=== PATIENT | male | born 1945 | race Caucasian/White ===

== ENCOUNTER → 2016-10-28 | Outpatient (CLI) | payer MEDICARE ==
[2016-10-28 09:22] LABS: Anion Gap 12 mmol/L; Blood Urea Nitrogen 14 mg/dL (9-20); Calcium 9.5 mg/dL (8.4-10.2); Carbon Dioxide 25 mmol/L (22-30); Chloride 104 mmol/L (98-107); Glucose 194 mg/dL (74-99); Non-African American GFR(MDRD) >60 (>60 ml/min/1.73 sqM); Potassium 4.1 mmol/L (3.5-5.1); Sodium 141 mmol/L (137-145)
[2016-10-28 11:36] LABS: Hemoglobin A1C 7.7 % (4.2-6.1)
== END | disposition home or self-care (01) ==
LOC: LABWHC1 08:48
PROVIDERS: ATTEND Internal Medicine
DX: E11.9 Type 2 diabetes mellitus without complications (principal)
CPT/HCPCS: 36415; 80048; 82043; 83036

== ENCOUNTER → 2017-01-13 | Outpatient (CLI) | payer MEDICARE ==
[2017-01-13 09:16] LABS: Anion Gap 10 mmol/L; Blood Urea Nitrogen 18 mg/dL (9-20); Calcium 9.1 mg/dL (8.4-10.2); Carbon Dioxide 24 mmol/L (22-30); Chloride 106 mmol/L (98-107); Glucose 139 mg/dL (74-99); Non-African American GFR(MDRD) >60 (>60 ml/min/1.73 sqM); Potassium 4.2 mmol/L (3.5-5.1); Sodium 140 mmol/L (137-145)
[2017-01-13 10:01] LABS: Hemoglobin A1C 7.1 % (4.2-6.1)
== END ==
LOC: LABWHC1 08:31
PROVIDERS: ATTEND Internal Medicine
DX: E11.65 Type 2 diabetes mellitus with hyperglycemia (principal)
CPT/HCPCS: 36415; 80048; 82043; 83036

== ENCOUNTER → 2017-04-20 | Outpatient (CLI) | payer MEDICARE ==
[2017-04-20 10:18] LABS: Anion Gap 10 mmol/L; Blood Urea Nitrogen 14 mg/dL (9-20); Calcium 9.2 mg/dL (8.4-10.2); Carbon Dioxide 23 mmol/L (22-30); Chloride 106 mmol/L (98-107); Glucose 130 mg/dL (74-99); Non-African American GFR(MDRD) >60 (>60 ml/min/1.73 sqM); Potassium 4.4 mmol/L (3.5-5.1); Sodium 139 mmol/L (137-145)
[2017-04-20 13:23] LABS: Hemoglobin A1C 6.5 % (4.2-6.1)
== END | disposition home or self-care (01) ==
LOC: LABWHC1 08:50
PROVIDERS: ATTEND Internal Medicine
DX: E11.65 Type 2 diabetes mellitus with hyperglycemia (principal)
CPT/HCPCS: 36415; 80048; 83036

== ENCOUNTER → 2017-05-05 | Outpatient (CLI) | payer MEDICARE ==
--- NOTE | 2017-05-05 16:55 | US ---
EXAMINATION TYPE: US carotid duplex BILAT DATE OF EXAM: 05/05/2017 COMPARISON: NONE CLINICAL HISTORY: H81.49 Vertigo of central origin unspecified ear. EXAM MEASUREMENTS: RIGHT: Peak Systolic Velocity (PSV) cm/sec ----- Right CCA: 87.9 ----- Right ICA: 104.3 ----- Right ECA: 86.7 ICA/CCA ratio: 1.2 RIGHT: End Diastole cm/sec ----- Right CCA: 22.2 ----- Right ICA: 37.4 ----- Right ECA: 14.7 LEFT: Peak Systolic Velocity (PSV) cm/sec ----- Left CCA: 93.2 ----- Left ICA: 125.5 ----- Left ECA: 109.4 ICA/CCA ratio: 1.3 LEFT: End Diastole cm/sec ----- Left CCA: 23.8 ----- Left ICA: 43.0 ----- Left ECA: 12.1 VERTEBRALS (direction of flow): Right Vertebral: Antegrade Left Vertebral: Antegrade Grayscale images show no significant focal plaque at carotid bulb level. Mild increased velocities le ft internal carotid artery are present. ICA over CCA ratio remains within normal limits. IMPRESSION: No convincing hemodynamically significant stenosis in either internal carotid artery.
== END ==
LOC: RADUSWWP 16:06
PROVIDERS: ATTEND Internal Medicine
DX: R42 Dizziness and giddiness (principal)
CPT/HCPCS: 93880

== ENCOUNTER 2017-10-07 18:25 | Observation (INO) | payer MEDICARE ==
[2017-10-07] MEDS ORDERED: FAMOTIDINE 20 MG/2 ML VIAL IV STA (18:59)
[2017-10-07] MEDS ORDERED: methylPREDNISolone SOD SUCCI 125 MG/2 ML VIAL IV STA (18:59)
[2017-10-07] MEDS ORDERED: diphenhydrAMINE 50 MG/ML 1 ML VIAL IVP STA (18:59)
--- NOTE | 2017-10-07 19:14 | XR ---
EXAMINATION TYPE: XR chest 1V portable DATE OF EXAM: 10/07/2017 COMPARISON: 03/02/2016 INDICATION: Difficulty in breathing, tongue swelling TECHNIQUE: Single frontal view of the chest is obtained. FINDINGS: The heart size is normal. The pulmonary vasculature is normal. The lungs are clear. IMPRESSION: 1. No acute pulmonary process.
[2017-10-07 19:35] LABS: Basophils # (A) 0.1 k/uL (0-0.2); Basophils % (A) 1 %; Eosinophils # (A) 0.6 k/uL (0-0.7); Eosinophils % (A) 9 %; HCT 47.3 % (39.0-53.0); HGB 15.5 gm/dL (13.0-17.5); Lymphocytes # (A) 2.9 k/uL (1.0-4.8); Lymphocytes % (A) 39 %; MCH 30.2 pg (25.0-35.0); MCHC 32.9 g/dL (31.0-37.0); MCV 91.9 fL (80.0-100.0); Mean Platelet Volume 7.8; Monocytes # (A) 0.3 k/uL (0-1.0); Monocytes % (A) 5 %; Neutrophils # (A) 3.3 k/uL (1.3-7.7); Neutrophils % (A) 45 %; Platelet Count 143 k/uL (150-450); RBC 5.15 m/uL (4.30-5.90); RDW 12.1 % (11.5-15.5); WBC 7.3 k/uL (3.8-10.6)
[2017-10-07 19:44] LABS: ALT 38 U/L (21-72); AST 32 U/L (17-59); Albumin 4.5 g/dL (3.5-5.0); Alkaline Phosphatase 82 U/L (38-126); Anion Gap 11 mmol/L; Blood Urea Nitrogen 15 mg/dL (9-20); Calcium 9.6 mg/dL (8.4-10.2); Carbon Dioxide 28 mmol/L (22-30); Chloride 102 mmol/L (98-107); Glucose 100 mg/dL (74-99); Potassium 3.6 mmol/L (3.5-5.1); Sodium 141 mmol/L (137-145); Total Bilirubin 0.5 mg/dL (0.2-1.3); Total Protein 7.1 g/dL (6.3-8.2)
[2017-10-07 19:57] LABS: Partial Thromboplastin Time 22.5 sec (22.0-30.0)
[2017-10-07] MEDS ORDERED: NALOXONE 0.4 MG/ML 1 ML VIAL IV PRN (20:28)
[2017-10-07] MEDS ORDERED: SODIUM CHLORIDE 0.9% 1,000 ML IV SCH (20:30)
--- NOTE | 2017-10-07 20:38 | ED ---
General Adult HPI - General Chief complaint: Allergic Reaction Stated complaint: Swollen tounge Time Seen by Provider: 10/07/17 18:51 Source: patient, RN notes reviewed, old records reviewed Mode of arrival: ambulatory Limitations: no limitations - History of Present Illness Initial comments: 72-year-old male presents for evaluation of tongue swelling. This began approximately one hour prior to arrival. Patient has had some ALLERGIC issues with his fluorouracil cream which she is placing on his scalp and forehead secondary to precancerous lesions. He's had some swelling around his eyes and scalp. Last time uses screen was 3 days ago. He has had no facial swelling. Tongue swelling began abruptly. Patient is currently on Benzapril for high blood pressure. He has never had an issue with his blood pressure medication the past. No history of angioedema. No history of tongue swelling. Patient states he was some mild difficulty swallowing, no difficulty breathing. No nausea vomiting or diarrhea. - Related Data Home Medications Medication Instructions Recorded Confirmed Aspirin [Adult Low Dose Aspirin EC] 81 mg PO HS 10/07/17 10/07/17 Atorvastatin [Lipitor] 10 mg PO HS 10/07/17 10/07/17 Benazepril/Hydrochlorothiazide 1 tab PO DAILY 10/07/17 10/07/17 [Lotensin Hct 10-12.5 mg Tablet] Fluorouracil [Efudex] 1 applic TOPICAL BID 10/07/17 10/07/17 Potassium Chloride [Klor-Con 10] 10 meq PO DAILY 10/07/17 10/07/17 Allergies Allergy/AdvReac Type Severity Reaction Status Date / Time LON Inhibitors Allergy Swelling Verified 10/07/17 19:57 Penicillins Allergy Rash/Hives Verified 10/07/17 19:14 Sulfa (Sulfonamide Allergy Rash/Hives Verified 10/07/17 19:14 Antibiotics) Review of Systems ROS Statement: Those systems with pertinent positive or pertinent negative responses have been documented in the HPI. ROS Other: All systems not noted in ROS Statement are negative. Past Medical History Past Medical History: Cancer, Hyperlipidemia, Hypertension Additional Past Medical History / Comment(s): skin History of Any Multi-Drug Resistant Organisms: None Reported Past Surgical History: Cholecystectomy Additional Past Surgical History / Comment(s): eye Past Psychological History: No Psychological Hx Reported Smoking Status: Never smoker Past Alcohol Use History: None Reported Past Drug Use History: None Reported General Exam Limitations: no limitations General appearance: alert, in no apparent distress Head exam: Present: atraumatic, normocephalic Eye exam: Present: normal appearance, PERRL ENT exam: Present: other (Large left-sided unilateral tongue swelling, no swelling of the uvula or posterior oropharynx, no lip swelling) Respiratory exam: Present: normal lung sounds bilaterally. Absent: respiratory distress, stridor Cardiovascular Exam: Present: regular rate, normal rhythm GI/Abdominal exam: Present: soft. Absent: distended, tenderness Extremities exam: Present: normal inspection, normal capillary refill. Absent: pedal edema Neurological exam: Present: alert, oriented X3, CN II-XII intact. Absent: motor sensory deficit Psychiatric exam: Present: normal affect, normal mood Skin exam: Present: warm, dry, intact. Absent: cyanosis, diaphoretic Course Vital Signs 10/07/17 10/07/17 10/07/17 18:39 19:05 20:05 Temperature 98.7 F Pulse Rate 69 67 65 Respiratory 16 20 20 Rate Blood Pressure 185/92 153/82 136/83 O2 Sat by Pulse 97 99 96 Oximetry - Reevaluation(s) Reevaluation #1: 10/07/17 20:36 Patient reevaluated multiple times, he does have persistent swelling which is non-progressive. No respiratory distress on reevaluation. Medical Decision Making - Medical Decision Making 71-year-old male presenting with left-sided tongue swelling consistent with angioedema. Patient is currently on an LON inhibitor. This will be discontinued and added to his ALLERGY list. Patient has no respiratory distress , no Progression of symptoms while in the emergency department. He will be admitted for close evaluation. He is given episode, Benadryl, and Solu-Medrol in the emergency department. Case is discussed with the pulmonary asphalt raker immigration manager is aware of the patient for the possibility of deterioration. Patient will be admitted to stepdown unit for close observation. - Lab Data Result diagrams: 10/07/17 19:25 10/07/17 19:25 Lab Results 10/07/17 10/07/17 10/07/17 Range/Units 19:25 19:25 19:25 WBC 7.3 (3.8-10.6) k/uL RBC 5.15 (4.30-5.90) m/uL Hgb 15.5 (13.0-17.5) gm/dL Hct 47.3 (39.0-53.0) % MCV 91.9 (80.0-100.0) fL MCH 30.2 (25.0-35.0) pg MCHC 32.9 (31.0-37.0) g/dL RDW 12.1 (11.5-15.5) % Plt Count 143 L (150-450) k/uL Neutrophils % 45 % Lymphocytes % 39 % Monocytes % 5 % Eosinophils % 9 % Basophils % 1 % Neutrophils # 3.3 (1.3-7.7) k/uL Lymphocytes # 2.9 (1.0-4.8) k/uL Monocytes # 0.3 (0-1.0) k/uL Eosinophils # 0.6 (0-0.7) k/uL Basophils # 0.1 (0-0.2) k/uL PT 10.0 (9.0-12.0) sec INR 1.0 (<1.2) APTT 22.5 (22.0-30.0) sec Sodium 141 (137-145) mmol/L Potassium 3.6 (3.5-5.1) mmol/L Chloride 102 (98-107) mmol/L Carbon Dioxide 28 (22-30) mmol/L Anion Gap 11 mmol/L BUN 15 (9-20) mg/dL Creatinine 0.88 (0.66-1.25) mg/dL Est GFR (MDRD) Af Amer >60 (>60 ml/min/1.73 sqM) Est GFR (MDRD) Non-Af >60 (>60 ml/min/1.73 sqM) Glucose 100 H (74-99) mg/dL Calcium 9.6 (8.4-10.2) mg/dL Total Bilirubin 0.5 (0.2-1.3) mg/dL AST 32 (17-59) U/L ALT 38 (21-72) U/L Alkaline Phosphatase 82 (38-126) U/L Total Protein 7.1 (6.3-8.2) g/dL Albumin 4.5 (3.5-5.0) g/dL Critical Care Time Critical Care Time: Yes Total Critical Care Time: 35 Disposition Clinical Impression: Angioedema Disposition: ADMITTED IP TO THIS HOSP Condition: Serious Referrals: Plonka,Lucio J, MD [Primary Care Provider] - 1-2 days Decision to Admit Reason: Admit from EC Decision Date: 10/07/17 Decision Time: 20:37
[2017-10-07] MEDS ORDERED: ACETAMINOPHEN TAB 325 MG TAB PO PRN (22:50)
[2017-10-07 22:55] VITALS: BMI 27.8
[2017-10-07] MEDS ORDERED: ASPIRIN 81 MG PO SCH (23:00)
[2017-10-07] MEDS ORDERED: ATORVASTATIN 10 MG TAB PO SCH (23:00)
--- NOTE | 2017-10-07 23:02 | P.HPIM ---
History of Present Illness H&P Date: 10/07/17 Chief Complaint: tongue swelling of few hours duration 72 year old male with pmhx skin precancer lesion of the scalp , hypertension. Patient presetned one hour after he noticed that his tongue is getting swollen, he denies any compromise to swallowing or breathing difficulties, but he noticed difficulties with speech along with swelling of his eyes. He had no changes in his medications and he has been taking benazepril for over 20 years now, however, he was recently started on 5-FU cream for his scalp precancerous lesions (there are case reports of angioedema with 5-FU cream). otherwise patient denies any fevers, chills, headache, SOB, chest pain, abd pain, diarrhea , denies any diffculty urinating , denies any bleeding. He feels Ok now after he received solumedrol, benadryl in the ED, he feels his tongue is back to normal sizze, and his speech is almost back to normal,. he otherwise denies any focal neurologic deficits. He was admitted for close observation, and to monitor his airways, in case he needs intubation. case was discussed with the ICU physician budget consultant to check for bed availability in the ICU in case needed, and he was OK with the admission to step down unit for observation. Review of Systems Constitutional: Patient denies fever, denies chills, denies night sweating, denies significant weight changes Eyes: Patient denies visual changes, denies eye pain ENT: Patient denies ear pain, denies rhinorrhea, denies sore throat Cardiovascular: Patient denies chest pain, denies exertional dyspnea, denies peripheral leg edema, denies orthopnea, denies paroxysmal nocturnal dyspnea Respiratory:Patient denies cough, denies wheezing, denies shortness of breath Gastrointestinal: Patient denies diarrhea, denies constipation, denies nausea , denies vomiting, denies abdominal pain Genitourinary: Patient denies dysuria, denies hematuria, denies changes in urinary habits, denies genital lesions Musculoskeletal: Patient denies muscle pain, denies joint pain Psychiatric: Patient denies changes in mood or memory, denies suicidal ideation, denies anxiety Endocrine: Patient denies heat intolerance, denies cold intolerance, denies excessive thirst, denies polyuria Neurological: Patient denies focal neurologic deficits, denies weakness, denies numbness, denies tingling Hem/Lymphatic: Patient denies bleeding tendency, denies bruising, denies swollen lymph glands Allergic/Immun: Patient reports symptoms suggestive of allergic reaction ( angioedema Skin: Patient denies rashes, denies pruritis, denies ulcers 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 History of Any Multi-Drug Resistant Organisms: None Reported Past Surgical History: Cholecystectomy Additional Past Surgical History / Comment(s): eye (cataracts); laminectomy(2016 ) Past Anesthesia/Blood Transfusion Reactions: No Reported Reaction Past Psychological History: No Psychological Hx Reported Smoking Status: Never smoker Past Alcohol Use History: Occasional Past Drug Use History: None Reported - Past Family History Mother Family Medical History: Cancer Additional Family Medical History / Comment(s): lung CA Father Family Medical History: Hypertension Sister(s) Family Medical History: COPD, Rheumatoid Arthritis (RA) Medications and Allergies Home Medications Medication Instructions Recorded Confirmed Type Aspirin [Adult Low Dose Aspirin EC] 81 mg PO HS 10/07/17 10/07/17 History Atorvastatin [Lipitor] 10 mg PO HS 10/07/17 10/07/17 History Benazepril/Hydrochlorothiazide 1 tab PO DAILY 10/07/17 10/07/17 History [Lotensin Hct 10-12.5 mg Tablet] Fluorouracil [Efudex] 1 applic TOPICAL BID 10/07/17 10/07/17 History Potassium Chloride [Klor-Con 10] 10 meq PO DAILY 10/07/17 10/07/17 History Allergies Allergy/AdvReac Type Severity Reaction Status Date / Time LON Inhibitors Allergy Swelling Verified 10/07/17 19:57 Penicillins Allergy Rash/Hives Verified 10/07/17 19:14 Sulfa (Sulfonamide Allergy Rash/Hives Verified 10/07/17 19:14 Antibiotics) Physical Exam Vitals: Vital Signs Temp Pulse Resp BP Pulse Ox 10/07/17 21:01 98.3 F 66 20 169/77 96 10/07/17 20:05 65 20 136/83 96 10/07/17 19:05 67 20 153/82 99 10/07/17 18:39 98.7 F 69 16 185/92 97 Intake and Output 10/07/17 10/07/17 10/07/17 06:59 14:59 22:59 Other: # Voids 1 Weight 85.729 kg Patient Weight 10/08/17 06:59 Weight 85.729 kg Constitutional: No acute distress, conversant, pleasant Eyes: Anicteric sclerae, moist conjunctiva, no lid-lag Pupils equal round reactive to light ENMT: NC/AT Oropharynx clear, no erythema, exudates tongue of unremarkable size at this time, uveola midline, soft palate is symmetrical, no mucus membrane swelling Neck: Supple, FROM, no masses, or JVD No carotid bruits No thyromegaly Lungs: Clear to auscultation Clear to percussion Normal respiratory effort, no accessory muscle use Cardiovascular: Heart regular in rate and rhythm, No murmurs, gallops, or rubs No peripheral edema Abdominal: Soft Nontender, no guarding, rebound or rigidity Abdomen moving with respiration Normoactive bowel sounds No hepatomegaly, No splenomegaly No palpable mass No abdominal wall hernia noted Skin: scalp with multiple superficial small ulcers Normal temperature, tone, texture, turgor No induration No subcutaneous nodules No rash, lesions keratotic dermatitis on the back, multiple Extremities: No digital cyanosis No clubbing Pedal pulses intact and symmetrical Radial pulses intact and symmetrical No calf tenderness Psychiatric: Alert and oriented to person, place and time Appropriate affect fair judgment Neuro Muscles Strength 5/5 in all 4 extremities Sensation to light touch grossly present throughout Cranial nerves II-XII grossly intact No focal sensory deficits Lymphatics: no palpable cervical or supraclavicular , or inguinal lymph nodes Results CBC & Chem 7: 10/07/17 19:25 10/07/17 19:25 Labs: Abnormal Lab Results - Last 24 Hours (Table) 10/07/17 10/07/17 Range/Units 19:25 19:25 Plt Count 143 L (150-450) k/uL Glucose 100 H (74-99) mg/dL Assessment and Plan (1) Angioedema Narrative/Plan: currently improving after initial treatment with solumedrol, benadryl i discussed with the patient indications, risks and benefits of FFP in this condition, he agreed to receive the transfusion continue close monitoring of airways and any reoccurence of symptoms 5-FU cream is also mentioned in the literature to possibly cause angioedema patient should not use 5-FU or ACEi after discharge , and this should be discussed further with his physicians to look for alternatives Current Visit: Yes Status: Acute Code(s): T78.3XXA - ANGIONEUROTIC EDEMA, INITIAL ENCOUNTER SNOMED Code(s): 84468516 (2) Hypertension Narrative/Plan: uncontrolled discontinue ACEI due to possible cause of angioedema continue with HCTZ start norvasc 5 mg daily monitor vital signs currently asymptomatic Current Visit: Yes Status: Acute Code(s): I10 - ESSENTIAL (PRIMARY) HYPERTENSION SNOMED Code(s): 76493665 (3) Precancerous skin lesion Narrative/Plan: OP follow up with his doctor avoid 5 FU cream after discharge Current Visit: Yes Status: Acute Code(s): L98.9 - DISORDER OF THE SKIN AND SUBCUTANEOUS TISSUE, UNSPECIFIED SNOMED Code(s): 29442774 (4) DVT prophylaxis Narrative/Plan: heparin sc tid Current Visit: Yes Status: Acute Code(s): KPV3307 - SNOMED Code(s): 436674915 Plan: Surrogate decision-maker: patient CODE STATUS full code DVT prophylaxis: heparin sc Discussed with: Patient, ER, rn, family Anticipated discharge: [address]: home A total of 60 minutes were spent on the care of this complex patient more than 50% of the time was spent in counseling and care coordination.
[2017-10-07] MEDS: amLODIPine 5 MG TAB PO SCH (23:38)
[2017-10-07] MEDS: FAMOTIDINE 20 MG TAB PO SCH (23:38)
[2017-10-07] MEDS: HEPARIN SODIUM,PORCINE 5,000 UNIT/ML 1 ML VIAL SQ SCH (23:38)
[2017-10-08 05:07] VITALS: RESP 18
[2017-10-08 07:05] LABS: Basophils % (A) 0 %; Eosinophils % (A) 0 %; HCT 39.5 % (39.0-53.0); HGB 13.6 gm/dL (13.0-17.5); Lymphocytes # (A) 1.1 k/uL (1.0-4.8); Lymphocytes % (A) 17 %; MCH 30.8 pg (25.0-35.0); MCHC 34.5 g/dL (31.0-37.0); MCV 89.2 fL (80.0-100.0); Mean Platelet Volume 7.7; Monocytes # (A) 0.1 k/uL (0-1.0); Monocytes % (A) 1 %; Neutrophils # (A) 5.1 k/uL (1.3-7.7); Neutrophils % (A) 81 %; Platelet Count 138 k/uL (150-450); RBC 4.43 m/uL (4.30-5.90); RDW 12.1 % (11.5-15.5); WBC 6.3 k/uL (3.8-10.6)
[2017-10-08 07:34] LABS: ALT 29 U/L (21-72); AST 24 U/L (17-59); Albumin 3.9 g/dL (3.5-5.0); Alkaline Phosphatase 73 U/L (38-126); Anion Gap 12 mmol/L; Blood Urea Nitrogen 14 mg/dL (9-20); Calcium 9.4 mg/dL (8.4-10.2); Carbon Dioxide 25 mmol/L (22-30); Chloride 104 mmol/L (98-107); Glucose 196 mg/dL (74-99); Potassium 3.6 mmol/L (3.5-5.1); Sodium 141 mmol/L (137-145); Total Bilirubin 0.5 mg/dL (0.2-1.3); Total Protein 6.4 g/dL (6.3-8.2)
[2017-10-08] MEDS: amLODIPine 5 MG TAB PO SCH (07:47)
[2017-10-08] MEDS: HEPARIN SODIUM,PORCINE 5,000 UNIT/ML 1 ML VIAL SQ SCH (07:47)
[2017-10-08] MEDS: FAMOTIDINE 20 MG TAB PO SCH (07:47)
[2017-10-08 07:54] VITALS: BP 132/69; PULSE 88; TEMP 96.6
[2017-10-08] MEDS ORDERED: HYDROCHLOROTHIAZIDE 12.5 MG CAP PO SCH (09:00)
[2017-10-08] MEDS ORDERED: amLODIPine 5 MG TAB PO SCH (09:00)
--- NOTE | 2017-10-08 10:41 | P.DS ---
Providers Date of admission: 10/07/17 20:30 Expected date of discharge: 10/08/17 Attending physician: Vinny Bruce MD Primary care physician: Lucio Greco - Discharge Diagnosis(es) (1) Angioedema Symptoms have resolved at this time Recommendation for patient. LON inhibitor and 5-FU Current Visit: Yes Status: Acute (2) Hypertension Blood pressure controlled on this regimen at this time Current Visit: Yes Status: Acute (3) Precancerous skin lesion Patient to follow-up with financial manager for further recommendations Current Visit: Yes Status: Acute Hospital Course: 72-year-old male that presented to [facility] symptoms of tongue swelling. Denies any shortness of breath or difficulty swallowing. But did notice having difficulty with speech with his tongue swelling. Patient has been taken LON inhibitor for over 20 years. 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 On 2 occasions previously patient had an reaction to that with swelling in his face from that. But never had any tongue swelling previous to that. Last use was to stay and the swelling had gone down. Suddenly yesterday patient started noticing tongue swelling difficulty with speech but no shortness of breath. So patient presented to [facility] ER where he was admitted for angioedema. Patient was treated with IV steroids Pepcid and was given fresh frozen plasma. Patient back to baseline at this time. We'll discharge home on Pepcid tapering dose of prednisone. Patient's LON inhibitor was discontinued. This was replaced by Norvasc and patient was given prescription for hydrochlorothiazide separately since he took a combination medication including the LON inhibitor and hydrochlorothiazide. Patient was asked to follow-up with Dr. Greco in 1 week. gen:alert and oriented no tongue swelling lungs:clear to auscultation heart:s1s2 abdomen:soft and depressible,non tender ext:no edema Patient Condition at Discharge: Stable Plan - Discharge Summary Discharge Rx Participant: No New Discharge Prescriptions: New amLODIPine [Norvasc] 5 mg PO DAILY #30 tab diphenhydrAMINE [Benadryl] 25 mg PO QID PRN #20 capsule PRN Reason: Angioedema Famotidine [Pepcid] 20 mg PO BID #7 tab Hydrochlorothiazide [Hydrodiuril] 12.5 mg PO DAILY #30 cap predniSONE 10 mg PO DAILY #30 tab Continue Potassium Chloride [Klor-Con 10] 10 meq PO DAILY Atorvastatin [Lipitor] 10 mg PO HS Aspirin [Adult Low Dose Aspirin EC] 81 mg PO HS Discontinued Benazepril/Hydrochlorothiazide [Lotensin Hct 10-12.5 mg Tablet] 1 tab PO DAILY Fluorouracil [Efudex] 1 applic TOPICAL BID Discharge Medication List Aspirin [Adult Low Dose Aspirin EC] 81 mg PO HS 10/07/17 [History] Atorvastatin [Lipitor] 10 mg PO HS 10/07/17 [History] Potassium Chloride [Klor-Con 10] 10 meq PO DAILY 10/07/17 [History] Famotidine [Pepcid] 20 mg PO BID #7 tab 10/08/17 [Rx] Hydrochlorothiazide [Hydrodiuril] 12.5 mg PO DAILY #30 cap 10/08/17 [Rx] amLODIPine [Norvasc] 5 mg PO DAILY #30 tab 10/08/17 [Rx] diphenhydrAMINE [Benadryl] 25 mg PO QID PRN #20 capsule 10/08/17 [Rx] predniSONE 10 mg PO DAILY #30 tab 10/08/17 [Rx] Follow up Appointment(s)/Referral(s): Lucio Greco MD [Primary Care Provider] - 1-2 days
== END 2017-10-08 11:39 | disposition home or self-care (01) ==
LOC: EC 18:25 → 6SEL 20:30 → INTOOBSV 20:30
PROVIDERS: ADMIT Internal Medicine; ATTEND Internal Medicine
DX: T78.3XXA Angioneurotic edema, initial encounter (principal); L98.9 Disorder of the skin and subcutaneous tissue, unspecified; I10 Essential (primary) hypertension; E78.5 Hyperlipidemia, unspecified; M19.90 Unspecified osteoarthritis, unspecified site; Z79.82 Long term (current) use of aspirin; Z79.899 Other long term (current) drug therapy; Z88.0 Allergy status to penicillin; Z88.2 Allergy status to sulfonamides; Z88.8 Allergy status to other drugs, medicaments and biological substances; Z80.1 Family history of malignant neoplasm of trachea, bronchus and lung; Z82.49 Family history of ischemic heart disease and other diseases of the circulatory system; Z82.5 Family history of asthma and other chronic lower respiratory diseases; Z82.61 Family history of arthritis
CPT/HCPCS: 99291 ×2; 96374 ×2; 96375 ×3; 96372 ×2; 36415; 86900; 86901; 80053 ×2; 85025 ×2; 85610; 85730; 86850; 71045; G0378 ×2; P9059 ×2; J1200; J1644 ×2; J2930

== ENCOUNTER 2017-10-15 18:36 | Emergency (ER) | payer MEDICARE ==
[2017-10-15 18:45] VITALS: RESP 17
[2017-10-15] MEDS ORDERED: SODIUM CHLORIDE 0.9% 1,000 ML IV STA (18:57)
[2017-10-15] MEDS ORDERED: methylPREDNISolone SOD SUCCI 125 MG/2 ML VIAL IV STA (18:57)
--- NOTE | 2017-10-15 19:01 | ED ---
General Adult HPI - General Chief complaint: Allergic Reaction Stated complaint: throat swelling Time Seen by Provider: 10/15/17 18:49 Source: patient, RN notes reviewed Mode of arrival: ambulatory Limitations: no limitations - History of Present Illness Initial comments: 72 yo male presents to the ER with cc of knot in his throat. Patient states that last week he had an episode of angioedema. He is currently on a Medrol Dosepak and he states that tonight he just mostly little knot in his throat. He states he took 2 Benadryl and it seemed to lessen but he was concerned due to his recent angioedema states that he should be seen. They did take him off his lisinopril which they were suspicious was causing his symptoms. They state that she does not feeling short of breath he just feels versus not his throat and swallowing can be difficult. He states he is able to tolerate his saliva. They were concerns without they should be seen. There is been no rash. Patient denies any recent fever, chills, shortness of breath, chest pain, back pain, abdominal pain, nausea vomiting, numbness or tingling, dysuria or hematuria, constipation or diarrhea, headaches or visual changes, or any other current symptoms. - Related Data Home Medications Medication Instructions Recorded Confirmed Aspirin [Adult Low Dose Aspirin EC] 81 mg PO HS 10/07/17 10/15/17 Atorvastatin [Lipitor] 10 mg PO HS 10/07/17 10/15/17 Potassium Chloride [Klor-Con 10] 10 meq PO DAILY 10/07/17 10/15/17 Hydrochlorothiazide [Hydrodiuril] 12.5 mg PO DAILY PRN 10/15/17 10/15/17 diphenhydrAMINE [Benadryl] 50 mg PO QID PRN 10/15/17 10/15/17 predniSONE See Taper PO DAILY 10/15/17 10/15/17 Previous Rx's Medication Instructions Recorded amLODIPine [Norvasc] 5 mg PO DAILY #30 tab 10/08/17 Famotidine [Pepcid] 20 mg PO BID #10 tablet 10/15/17 diphenhydrAMINE [Benadryl] 50 mg PO HS PRN #5 capsule 10/15/17 predniSONE 50 mg PO DAILY #5 tab 10/15/17 Allergies Allergy/AdvReac Type Severity Reaction Status Date / Time LON Inhibitors Allergy Swelling Verified 10/15/17 19:17 Penicillins Allergy Rash/Hives Verified 10/15/17 19:17 Sulfa (Sulfonamide Allergy Rash/Hives Verified 10/15/17 19:17 Antibiotics) Review of Systems ROS Statement: Those systems with pertinent positive or pertinent negative responses have been documented in the HPI. ROS Other: All systems not noted in ROS Statement are negative. 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 History of Any Multi-Drug Resistant Organisms: None Reported Past Surgical History: Cholecystectomy Additional Past Surgical History / Comment(s): eye (cataracts); laminectomy(2016 ) Past Anesthesia/Blood Transfusion Reactions: No Reported Reaction Past Psychological History: No Psychological Hx Reported Smoking Status: Never smoker Past Alcohol Use History: Occasional Past Drug Use History: None Reported - Past Family History Mother Family Medical History: Cancer Additional Family Medical History / Comment(s): lung CA Father Family Medical History: Hypertension Sister(s) Family Medical History: COPD, Rheumatoid Arthritis (RA) General Exam - General Exam Comments Initial Comments: General: The patient is awake and alert, in no distress, and does not appear acutely ill. Eye: Pupils are equal, round and reactive to light. Ears, nose, mouth and throat: There are moist mucous membranes. Neck: The neck is supple, there is no tenderness. Cardiovascular: There is a regular rate and rhythm. No murmur, rub or gallop is appreciated. Respiratory: Lungs are clear to auscultation, respirations are non-labored, breath sounds are equal. No wheezes, stridor, rales, or rhonchi. Gastrointestinal: Soft, non-distended, non-tender abdomen without masses or organomegaly noted. There is no rebound or guarding present. No CVA tenderness. Bowel sounds are unremarkable. Back: There is no tenderness to palpation in the midline. There is no obvious deformity. No rashes noted. Musculoskeletal: Normal ROM, no tenderness, There is no pedal edema. There is no calf tenderness or swelling. Sensation intact. Pulses equal bilaterally 2+. Neurological: CN II-XII intact, There are no obvious motor or sensory deficits. Coordination appears grossly intact. Speech is normal. Skin: Skin is warm and dry and no rashes or lesions are noted. Psychiatric: Cooperative, appropriate mood & affect, normal judgment. Limitations: no limitations Course Vital Signs 10/15/17 18:42 Temperature 98.2 F Pulse Rate 89 Respiratory 17 Rate Blood Pressure 182/88 O2 Sat by Pulse 98 Oximetry Medical Decision Making - Medical Decision Making 72-year-old male presents to the emergency Department chief complaint of throat irritation. At this time the patient was reexamined. He states that his throat irritation has improved. At this time we discussed continuing look for the ALLERGIES. We discussed we will increase his steroids as well as Benadryl and Pepcid. We discussed return parameters and follow-up and all questions. The patient stated that he understood and she is in agreement with this plan. All questions have been answered. This time patient will be discharged. - Lab Data Result diagrams: 10/15/17 19:23 10/15/17 19:23 Lab Results 10/15/17 10/15/17 Range/Units 19:23 19:23 WBC 10.5 (3.8-10.6) k/uL RBC 5.09 (4.30-5.90) m/uL Hgb 15.8 (13.0-17.5) gm/dL Hct 46.6 (39.0-53.0) % MCV 91.5 (80.0-100.0) fL MCH 31.0 (25.0-35.0) pg MCHC 33.9 (31.0-37.0) g/dL RDW 12.2 (11.5-15.5) % Plt Count 143 L (150-450) k/uL Neutrophils % 69 % Lymphocytes % 26 % Monocytes % 4 % Eosinophils % 0 % Basophils % 0 % Neutrophils # 7.2 (1.3-7.7) k/uL Lymphocytes # 2.8 (1.0-4.8) k/uL Monocytes # 0.4 (0-1.0) k/uL Eosinophils # 0.0 (0-0.7) k/uL Basophils # 0.0 (0-0.2) k/uL Sodium 141 (137-145) mmol/L Potassium 3.8 (3.5-5.1) mmol/L Chloride 103 (98-107) mmol/L Carbon Dioxide 24 (22-30) mmol/L Anion Gap 14 mmol/L BUN 19 (9-20) mg/dL Creatinine 0.90 (0.66-1.25) mg/dL Est GFR (MDRD) Af Amer >60 (>60 ml/min/1.73 sqM) Est GFR (MDRD) Non-Af >60 (>60 ml/min/1.73 sqM) Glucose 136 H (74-99) mg/dL Calcium 9.5 (8.4-10.2) mg/dL Total Bilirubin 0.6 (0.2-1.3) mg/dL AST 30 (17-59) U/L ALT 44 (21-72) U/L Alkaline Phosphatase 83 (38-126) U/L Total Protein 7.4 (6.3-8.2) g/dL Albumin 4.5 (3.5-5.0) g/dL Disposition Clinical Impression: Allergic reaction Disposition: HOME SELF-CARE Condition: Stable Instructions: Anaphylaxis (ED) Additional Instructions: Please use medication as discussed. Please follow up with family doctor if symptoms have not improved over the next two days. Please return to the emergency room if your symptoms increase or worsen or for any other concerns. Prescriptions: diphenhydrAMINE [Benadryl] 50 mg PO HS PRN #5 capsule PRN Reason: Itching Famotidine [Pepcid] 20 mg PO BID #10 tablet predniSONE 50 mg PO DAILY #5 tab Referrals: Lucio Greco MD [Primary Care Provider] - 1-2 days Time of Disposition: 20:52
[2017-10-15 19:48] LABS: Basophils % (A) 0 %; Eosinophils % (A) 0 %; HCT 46.6 % (39.0-53.0); HGB 15.8 gm/dL (13.0-17.5); Lymphocytes # (A) 2.8 k/uL (1.0-4.8); Lymphocytes % (A) 26 %; MCHC 33.9 g/dL (31.0-37.0); MCV 91.5 fL (80.0-100.0); Mean Platelet Volume 7.5; Monocytes # (A) 0.4 k/uL (0-1.0); Monocytes % (A) 4 %; Neutrophils # (A) 7.2 k/uL (1.3-7.7); Neutrophils % (A) 69 %; Platelet Count 143 k/uL (150-450); RBC 5.09 m/uL (4.30-5.90); RDW 12.2 % (11.5-15.5); WBC 10.5 k/uL (3.8-10.6)
[2017-10-15 20:04] LABS: ALT 44 U/L (21-72); AST 30 U/L (17-59); Albumin 4.5 g/dL (3.5-5.0); Alkaline Phosphatase 83 U/L (38-126); Anion Gap 14 mmol/L; Blood Urea Nitrogen 19 mg/dL (9-20); Calcium 9.5 mg/dL (8.4-10.2); Carbon Dioxide 24 mmol/L (22-30); Chloride 103 mmol/L (98-107); Glucose 136 mg/dL (74-99); Potassium 3.8 mmol/L (3.5-5.1); Sodium 141 mmol/L (137-145); Total Bilirubin 0.6 mg/dL (0.2-1.3); Total Protein 7.4 g/dL (6.3-8.2)
[2017-10-15 21:04] VITALS: BP 153/88; PULSE 69; TEMP 97.6
== END 2017-10-15 21:10 | disposition home or self-care (01) ==
LOC: EC 18:36
DX: T78.40XA Allergy, unspecified, initial encounter (principal); E78.5 Hyperlipidemia, unspecified; M19.90 Unspecified osteoarthritis, unspecified site; Z85.828 Personal history of other malignant neoplasm of skin; Z79.82 Long term (current) use of aspirin; Z79.52 Long term (current) use of systemic steroids; Z79.899 Other long term (current) drug therapy
CPT/HCPCS: 36415; 80053; 85025; 99283; 96374; 96361; J2930

== ENCOUNTER → 2017-10-26 | Outpatient (CLI) | payer MEDICARE ==
[2017-10-26 08:48] LABS: Appearance,Urine Clear (Clear); Bilirubin,Urine Negative (Negative); Blood,Urine Negative (Negative); Color,Urine Yellow; Glucose,Urine (UA) 4+ (Negative); Ketones,Urine Trace (Negative); Leukocyte Esterase,Urine Negative (Negative); Protein,Urine Trace (Negative); Specific Gravity,Urine 1.022 (1.001-1.035); Urobilinogen,Urine <2.0 mg/dL (<2.0)
[2017-10-26 08:49] LABS: Basophils % (A) 0 %; Eosinophils # (A) 0.2 k/uL (0-0.7); Eosinophils % (A) 2 %; HCT 40.4 % (39.0-53.0); HGB 13.9 gm/dL (13.0-17.5); Lymphocytes # (A) 2.7 k/uL (1.0-4.8); Lymphocytes % (A) 25 %; MCH 30.3 pg (25.0-35.0); MCHC 34.5 g/dL (31.0-37.0); MCV 87.8 fL (80.0-100.0); Mean Platelet Volume 8.4; Monocytes # (A) 0.5 k/uL (0-1.0); Monocytes % (A) 4 %; Neutrophils # (A) 7.1 k/uL (1.3-7.7); Neutrophils % (A) 67 %; Platelet Count 116 k/uL (150-450); RDW 12.1 % (11.5-15.5); WBC 10.6 k/uL (3.8-10.6)
[2017-10-26 11:02] LABS: Erythrocyte Sedimentation Rate 8 mm/hr (0-15)
[2017-10-28 16:59] LABS: C1 Esterase Inhibitor Fnc Assy > 86 % (> 67)
[2017-10-29 10:35] LABS: C1 Esterase Inhibitor, Protein 28 mg/dL (21-39)
== END | disposition home or self-care (01) ==
LOC: LABWHC1 07:55
PROVIDERS: ATTEND Allergy & Immunology
DX: T78.3XXA Angioneurotic edema, initial encounter (principal)
CPT/HCPCS: 36415; 81003; 84443; 85025; 85652; 86038; 86140; 86160; 86161

== ENCOUNTER → 2017-12-01 | Outpatient (CLI) | payer MEDICARE ==
[2017-12-01 10:06] LABS: Appearance,Urine Clear (Clear); Bilirubin,Urine Negative (Negative); Blood,Urine Negative (Negative); Color,Urine Yellow; Glucose,Urine (UA) Negative (Negative); Ketones,Urine Negative (Negative); Leukocyte Esterase,Urine Negative (Negative); Nitrite,Urine Negative (Negative); PH, Urine 6.5 (5.0-8.0); Protein,Urine Trace (Negative); Specific Gravity,Urine 1.019 (1.001-1.035); Urobilinogen,Urine <2.0 mg/dL (<2.0)
[2017-12-01 10:13] LABS: Basophils % (A) 1 %; Eosinophils # (A) 0.3 k/uL (0-0.7); Eosinophils % (A) 4 %; HCT 41.6 % (39.0-53.0); HGB 14.7 gm/dL (13.0-17.5); Lymphocytes # (A) 2.1 k/uL (1.0-4.8); Lymphocytes % (A) 30 %; MCH 30.9 pg (25.0-35.0); MCHC 35.4 g/dL (31.0-37.0); MCV 87.3 fL (80.0-100.0); Mean Platelet Volume 7.7; Monocytes # (A) 0.3 k/uL (0-1.0); Monocytes % (A) 4 %; Neutrophils # (A) 4.2 k/uL (1.3-7.7); Neutrophils % (A) 60 %; Platelet Count 142 k/uL (150-450); RBC 4.76 m/uL (4.30-5.90); RDW 12.8 % (11.5-15.5)
[2017-12-01 10:18] LABS: Anion Gap 11 mmol/L; Blood Urea Nitrogen 14 mg/dL (9-20); Calcium 9.3 mg/dL (8.4-10.2); Carbon Dioxide 28 mmol/L (22-30); Chloride 102 mmol/L (98-107); Glucose 136 mg/dL (74-99); Sodium 141 mmol/L (137-145)
[2017-12-01 17:26] LABS: Hemoglobin A1C 7.1 % (4.0-6.0)
== END | disposition home or self-care (01) ==
LOC: LABWHC1 08:44
PROVIDERS: ATTEND Allergy & Immunology
DX: E11.21 Type 2 diabetes mellitus with diabetic nephropathy (principal)
CPT/HCPCS: 36415; 80048; 81003; 83036; 85025

== ENCOUNTER → 2017-12-12 | Outpatient (CLI) | payer MEDICARE ==
--- NOTE | 2017-12-12 10:55 | US ---
EXAMINATION TYPE: US scrotum with doppler. TECHNIQUE: Grayscale and color Doppler Duplex imaging performed of the scrotum. DATE OF EXAM: 12/12/2017 COMPARISON: NONE CLINICAL HISTORY: 72-year-old male Bilateral swelling N50.8. Bilateral testicular swelling x2 days Findings: EXAM MEASUREMENTS: TESTICLES: Right Testicle: 4.8 x 2.3 x 2.4 cm Left Testicle: 4.8 x 2.7 x 2.5 cm EPIDIDYMIS HEAD: Right Epididymis: 0.9 cm, Left Epididymis: 0.9 cm Two small cystic areas visualized, largest measuring 0.2 cm Doppler performed to assess for testicular vascularity; good bilateral color flow and waveforms are s een. There is no evidence of testicular torsion. Presence of hydroceles: Yes, small to moderate on the left Presence of varicoceles: No Mild scrotal sac edema visualized IMPRESSION: 1. No sonographic evidence for testicular torsion. 2. Relatively symmetric size and appearance of the testicles. 3. Small to moderate-sized hydrocele on the left. 4. Cutaneous/subcutaneous edema of the scrotum.
== END | disposition home or self-care (01) ==
LOC: RADUSWWP 09:23
PROVIDERS: ATTEND Internal Medicine
DX: N43.3 Hydrocele, unspecified (principal)
CPT/HCPCS: 76870; 93975

== ENCOUNTER → 2018-03-08 | Outpatient (CLI) | payer MEDICARE ==
[2018-03-08 08:50] LABS: Anion Gap 12 mmol/L; Blood Urea Nitrogen 14 mg/dL (9-20); Calcium 8.9 mg/dL (8.4-10.2); Carbon Dioxide 25 mmol/L (22-30); Chloride 105 mmol/L (98-107); Glucose 130 mg/dL (74-99); Potassium 3.7 mmol/L (3.5-5.1); Sodium 142 mmol/L (137-145)
== END | disposition home or self-care (01) ==
LOC: LABWHC1 07:58
PROVIDERS: ATTEND Internal Medicine
DX: E11.21 Type 2 diabetes mellitus with diabetic nephropathy (principal)
CPT/HCPCS: 36415; 80048; 83036

== ENCOUNTER → 2018-06-14 | Outpatient (CLI) | payer MEDICARE ==
[2018-06-14 10:13] LABS: Basophils % (A) 0 %; Eosinophils # (A) 0.5 k/uL (0-0.7); Eosinophils % (A) 8 %; HGB 14.5 gm/dL (13.0-17.5); Lymphocytes # (A) 2.2 k/uL (1.0-4.8); Lymphocytes % (A) 35 %; MCV 90.8 fL (80.0-100.0); Mean Platelet Volume 7.7; Monocytes # (A) 0.2 k/uL (0-1.0); Monocytes % (A) 4 %; Neutrophils # (A) 3.2 k/uL (1.3-7.7); Neutrophils % (A) 51 %; Platelet Count 139 k/uL (150-450); RBC 4.85 m/uL (4.30-5.90); RDW 12.6 % (11.5-15.5); WBC 6.3 k/uL (3.8-10.6)
[2018-06-14 10:31] LABS: Anion Gap 8 mmol/L; Blood Urea Nitrogen 16 mg/dL (9-20); Calcium 9.2 mg/dL (8.4-10.2); Carbon Dioxide 26 mmol/L (22-30); Chloride 106 mmol/L (98-107); Glucose 139 mg/dL (74-99); Sodium 140 mmol/L (137-145)
[2018-06-14 19:47] LABS: Hemoglobin A1C 6.2 % (4.0-6.0)
== END ==
LOC: LABWHC1 08:56
PROVIDERS: ATTEND Internal Medicine
DX: E11.9 Type 2 diabetes mellitus without complications (principal)
CPT/HCPCS: 36415; 80048; 83036; 85025

== ENCOUNTER 2018-09-02 10:10 | Emergency (ER) | payer MEDICARE ==
[2018-09-02 10:18] VITALS: BP 155/90; PULSE 80; RESP 18; TEMP 97.5
[2018-09-02] MEDS ORDERED: HYDROcodone/APAP 7.5-325MG 1 EACH TAB PO ONE (10:29)
--- NOTE | 2018-09-02 10:38 | ED ---
Fall HPI - General Source: patient, RN notes reviewed Mode of arrival: ambulatory Limitations: no limitations <Tucker Hernandez - Last Filed: 09/02/18 10:56> <Keshav Crespo - Last Filed: 09/02/18 11:03> - General Chief Complaint: Fall Stated Complaint: fall, rib pain Time Seen by Provider: 09/02/18 10:20 - History of Present Illness Initial Comments: 73-year-old male presents emergency Department chief complaint of fall. Patient states he tripped and fell yesterday onto his left side. Patient went left-sided rib pain worse with movement and deep inspiration. He denies any head injury no loss conscious. Patient denies abdominal pain, extremity injury. Patient did admit that he was drinking some alcohol yesterday and had not eaten all day when he came in and tripped and fell. Patient states he has no dizziness, nausea vomiting diarrhea constipation. (Tucker Hernandez) - Related Data Home Medications Medication Instructions Recorded Confirmed Aspirin [Adult Low Dose Aspirin EC] 81 mg PO HS 10/07/17 10/15/17 Atorvastatin [Lipitor] 10 mg PO HS 10/07/17 10/15/17 Potassium Chloride [Klor-Con 10] 10 meq PO DAILY 10/07/17 10/15/17 Hydrochlorothiazide [Hydrodiuril] 12.5 mg PO DAILY PRN 10/15/17 10/15/17 diphenhydrAMINE [Benadryl] 50 mg PO QID PRN 10/15/17 10/15/17 predniSONE See Taper PO DAILY 10/15/17 10/15/17 Previous Rx's Medication Instructions Recorded amLODIPine [Norvasc] 5 mg PO DAILY #30 tab 10/08/17 Famotidine [Pepcid] 20 mg PO BID #10 tablet 10/15/17 diphenhydrAMINE [Benadryl] 50 mg PO HS PRN #5 capsule 10/15/17 predniSONE 50 mg PO DAILY #5 tab 10/15/17 Hydrocodone/Acetaminophen [Nesmith 1 tab PO Q6HR PRN #12 tab 09/02/18 5-325] Allergies Allergy/AdvReac Type Severity Reaction Status Date / Time LON Inhibitors Allergy Swelling Verified 10/15/17 19:17 NSAIDS (Non-Steroidal Allergy Anaphylaxis Verified 09/02/18 10:18 Anti-Inflamma Penicillins Allergy Rash/Hives Verified 10/15/17 19:17 Sulfa (Sulfonamide Allergy Rash/Hives Verified 10/15/17 19:17 Antibiotics) Review of Systems ROS Other: All systems not noted in ROS Statement are negative. <YoanaangieTucker Crocker - Last Filed: 09/02/18 10:56> ROS Other: All systems not noted in ROS Statement are negative. <Keshav Crespo - Last Filed: 09/02/18 11:03> ROS Statement: Those systems with pertinent positive or pertinent negative responses have been documented in the HPI. 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 History of Any Multi-Drug Resistant Organisms: None Reported Past Surgical History: Cholecystectomy Additional Past Surgical History / Comment(s): eye (cataracts); laminectomy(2016 ) Past Anesthesia/Blood Transfusion Reactions: No Reported Reaction Past Psychological History: No Psychological Hx Reported Smoking Status: Never smoker Past Alcohol Use History: Occasional Past Drug Use History: None Reported - Past Family History Mother Family Medical History: Cancer Additional Family Medical History / Comment(s): lung CA Father Family Medical History: Hypertension Sister(s) Family Medical History: COPD, Rheumatoid Arthritis (RA) <DavidTucker Crocker - Last Filed: 09/02/18 10:56> General Exam Limitations: no limitations General appearance: alert, in no apparent distress Head exam: Present: atraumatic, normocephalic, normal inspection Neck exam: Present: normal inspection, full ROM. Absent: tenderness, meningismus, lymphadenopathy Respiratory exam: Present: normal lung sounds bilaterally, chest wall tenderness (Moderate left-sided lateral to posterior). Absent: respiratory distress, wheezes, rales, rhonchi, stridor Cardiovascular Exam: Present: regular rate, normal rhythm, normal heart sounds. Absent: systolic murmur, diastolic murmur, rubs, gallop, clicks GI/Abdominal exam: Present: soft, normal bowel sounds. Absent: distended, tenderness, guarding, rebound, rigid Extremities exam: Present: normal inspection, full ROM, normal capillary refill. Absent: tenderness, pedal edema, joint swelling, calf tenderness Back exam: Present: full ROM. Absent: tenderness, CVA tenderness (R), CVA tenderness (L) Neurological exam: Present: alert, oriented X3, CN II-XII intact Skin exam: Present: warm, dry, intact, normal color. Absent: rash <Tucker Hernandez - Last Filed: 09/02/18 10:56> Course <Tucker Hernandez - Last Filed: 09/02/18 10:56> <Keshav Crespo - Last Filed: 09/02/18 11:03> Vital Signs 09/02/18 10:15 Temperature 97.5 F L Pulse Rate 80 Respiratory 18 Rate Blood Pressure 155/90 O2 Sat by Pulse 96 Oximetry - Reevaluation(s) Reevaluation #1: 09/02/18 11:01 PA supervision: I did personally do a [id number] evaluation the patient and did discuss findings with him and his . Patient did fall on stairs. X-ray was reviewed there is evidence of a isolated rib fracture on the left side. Lung sounds are clear. Localized point tenderness over the site of the fracture is seen on x-ray. No step-off or crepitation no other significant findings. I do agree with the assessment and plan. (Keshav Crespo) Medical Decision Making <Tucker Hernandez - Last Filed: 09/02/18 10:56> <Keshav Crespo - Last Filed: 09/02/18 11:03> - Medical Decision Making 73-year-old male presented for fall, left rib injury. Patient had rib series x- rays read negative by radiologist though there is a fracture noted that is isolated 1 rib fracture. Patient hasa pneumothorax. Patient will be discharged with pain medication, symptoms from tree return parameters were discussed. (Tucker Hernandez) Disposition Is patient prescribed a controlled substance at d/c from ED?: Yes When asked, does pt state using other controlled substances?: No If prescribed controlled substance>3 days was MAPS reviewed?: Prescribed <3 Days If opioid is for acute pain is fill amount 7 days or less?: Yes If Rx opioid, was Start Talking consent form obtained?: Yes Time of Disposition: 10:58 <Tucker Hernandez - Last Filed: 09/02/18 10:56> <Keshav Crespo - Last Filed: 09/02/18 11:03> Clinical Impression: Fall, Left rib fracture Disposition: HOME SELF-CARE Condition: Stable Instructions: Rib Fracture (ED) Additional Instructions: Please return to the Emergency Department if symptoms worsen or any other concerns. Prescriptions: Hydrocodone/Acetaminophen [Nesmith 5-325] 1 tab PO Q6HR PRN #12 tab PRN Reason: Pain Referrals: Lucio Greco MD [Primary Care Provider] - 1-2 days
--- NOTE | 2018-09-02 10:44 | XR ---
EXAMINATION TYPE: XR ribs LT w pa chest xray , 5 VIEWS DATE OF EXAM ORDERED: 09/02/2018 HISTORY: Pain. COMPARISON: Previous study dated 10/07/2017. FINDINGS: There is some atelectatic change present at the left lung base. The heart is not enlarged. Pleural spaces are clear. No displaced rib fracture is identified. No pneumothorax is identified. IMPRESSION: 1. PLATELIKE ATELECTASIS, LEFT LUNG BASE. 2. NO DISPLACED RIB FRACTURE IS IDENTIFIED.
== END 2018-09-02 11:23 | disposition home or self-care (01) ==
LOC: EC 10:10
DX: S22.32XA Fracture of one rib, left side, initial encounter for closed fracture (principal); S27.0XXA Traumatic pneumothorax, initial encounter; E78.5 Hyperlipidemia, unspecified; I10 Essential (primary) hypertension; Z85.828 Personal history of other malignant neoplasm of skin; Z79.82 Long term (current) use of aspirin; Z79.52 Long term (current) use of systemic steroids; Z79.899 Other long term (current) drug therapy; Z88.8 Allergy status to other drugs, medicaments and biological substances; Z88.6 Allergy status to analgesic agent; Z88.0 Allergy status to penicillin; Z88.2 Allergy status to sulfonamides; W01.0XXA Fall on same level from slipping, tripping and stumbling without subsequent striking against object, initial encounter; Y92.009 Unspecified place in unspecified non-institutional (private) residence as the place of occurrence of the external cause
CPT/HCPCS: 99283

== ENCOUNTER 2018-09-10 14:44 | Emergency (ER) | payer MEDICARE ==
[2018-09-10 15:01] VITALS: RESP 18
--- NOTE | 2018-09-10 15:34 | ED ---
URI HPI - General Source: patient, RN notes reviewed Mode of arrival: ambulatory Limitations: no limitations <Tucker Hernandez - Last Filed: 09/10/18 16:09> <Keshav Crespo - Last Filed: 09/10/18 16:12> - General Chief Complaint: Upper Respiratory Infection Stated Complaint: Cough Time Seen by Provider: 09/10/18 15:02 - History of Present Illness Initial Comments: 73-year-old male presents emergency Department with chief complaint of a cough. Patient is concerned as he was seen here 8 days ago for a fall, left rib fracture. Patient states he was to return for any worsening cough placed PCP. Patient states his PCP is closed in the cough worsened overnight. He states the pain was improving but now with the coughing pain has worsened. Patient reports no fever, chills, night sweats. Patient denies any headache, dizziness. (Tucker Hernandez) - Related Data Home Medications Medication Instructions Recorded Confirmed Atorvastatin [Lipitor] 10 mg PO HS 10/07/17 09/10/18 Potassium Chloride [Klor-Con 10] 10 meq PO DAILY 10/07/17 09/10/18 EPINEPHrine (Auto Inject) [Epipen] 0.3 mg IM ONCE PRN 09/10/18 09/10/18 Previous Rx's Medication Instructions Recorded amLODIPine [Norvasc] 5 mg PO DAILY #30 tab 10/08/17 Azithromycin [Zithromax Z-pack] 0 mg PO DIRECTED #1 pack 09/10/18 Allergies Allergy/AdvReac Type Severity Reaction Status Date / Time LON Inhibitors Allergy Swelling Verified 09/10/18 15:56 aspirin Allergy Anaphylaxis Verified 09/10/18 15:56 NSAIDS (Non-Steroidal Allergy Anaphylaxis Verified 09/10/18 15:56 Anti-Inflamma Penicillins Allergy Rash/Hives Verified 09/10/18 15:56 Sulfa (Sulfonamide Allergy Rash/Hives Verified 09/10/18 15:56 Antibiotics) Review of Systems ROS Other: All systems not noted in ROS Statement are negative. <Tucker Hernandez - Last Filed: 09/10/18 16:09> ROS Other: All systems not noted in ROS Statement are negative. <Keshav Crespo - Last Filed: 09/10/18 16:12> ROS Statement: Those systems with pertinent positive or pertinent negative responses have been documented in the HPI. 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 History of Any Multi-Drug Resistant Organisms: None Reported Past Surgical History: Cholecystectomy Additional Past Surgical History / Comment(s): eye (cataracts); laminectomy(2016 ) Past Anesthesia/Blood Transfusion Reactions: No Reported Reaction Past Psychological History: No Psychological Hx Reported Smoking Status: Never smoker Past Alcohol Use History: Occasional Past Drug Use History: None Reported - Past Family History Mother Family Medical History: Cancer Additional Family Medical History / Comment(s): lung CA Father Family Medical History: Hypertension Sister(s) Family Medical History: COPD, Rheumatoid Arthritis (RA) <Tucker Hernandez - Last Filed: 09/10/18 16:09> General Exam Limitations: no limitations General appearance: alert, in no apparent distress Head exam: Present: atraumatic, normocephalic, normal inspection Eye exam: Present: normal appearance, PERRL, EOMI. Absent: scleral icterus, conjunctival injection, periorbital swelling ENT exam: Present: normal exam, normal oropharynx, mucous membranes moist, TM's normal bilaterally, normal external ear exam Neck exam: Present: normal inspection, full ROM. Absent: tenderness, meningismus, lymphadenopathy Respiratory exam: Present: normal lung sounds bilaterally, chest wall tenderness. Absent: respiratory distress, wheezes, rales, rhonchi, stridor Cardiovascular Exam: Present: regular rate, normal rhythm, normal heart sounds. Absent: systolic murmur, diastolic murmur, rubs, gallop, clicks GI/Abdominal exam: Present: soft, normal bowel sounds. Absent: distended, tenderness, guarding, rebound, rigid <Tucker Hernandez - Last Filed: 09/10/18 16:09> Course <Tucker Hernandez - Last Filed: 09/10/18 16:09> <Keshav Crespo - Last Filed: 09/10/18 16:12> Vital Signs 09/10/18 14:58 Temperature 98.3 F Pulse Rate 70 Respiratory 18 Rate Blood Pressure 141/87 O2 Sat by Pulse 98 Oximetry - Reevaluation(s) Reevaluation #1: 09/10/18 16:11 PA supervision: I proceeded [id number] evaluation the patient. He does have improving pain on the left lateral chest where he fractured his left eighth rib. I did see him on an occasion as well as today. He does have some resolving ecchymosis he presented because of a cough. X-ray does show some evidence of atelectasis versus limited infiltrate also slight effusion. Patient will be discharged on antibiotics. I do agree with the assessment and plan. We did discuss this with the patient and his . (Keshav Crespo) Medical Decision Making <Tucker Hernandez - Last Filed: 09/10/18 16:09> <Keshav Crespo - Last Filed: 09/10/18 16:12> - Medical Decision Making 73-year-old male presented for recheck of a cough after fall, rib fracture. Patient don't have a small pleural effusion. Patient does have a wet sounding cough will be treated with antibiotics concerning for early signs of pneumonia. Patient follow-up PCP for recheck and return for any worsening symptoms. ( Tucker Hernandez) Disposition Is patient prescribed a controlled substance at d/c from ED?: No Time of Disposition: 16:10 <Tucker Hernandez - Last Filed: 09/10/18 16:09> <Keshav Crespo - Last Filed: 09/10/18 16:12> Clinical Impression: Left rib fracture, Cough Disposition: HOME SELF-CARE Condition: Stable Instructions: Upper Respiratory Infection (ED) Additional Instructions: Please return to the Emergency Department if symptoms worsen or any other concerns. Prescriptions: Azithromycin [Zithromax Z-pack] 0 mg PO DIRECTED #1 pack Referrals: Lucio Greco MD [Primary Care Provider] - 1-2 days
--- NOTE | 2018-09-10 15:39 | XR ---
EXAMINATION TYPE: XR chest 2V DATE OF EXAM: 09/10/2018 COMPARISON: Chest radiograph 09/02/2018 HISTORY: Pain with rib fracture TECHNIQUE: Frontal and lateral views of the chest are obtained. FINDINGS: Bibasilar subsegmental atelectasis which is worse on the left. There is interval developme nt of a trace left-sided pleural effusion. The cardiomediastinal silhouette is within normal limits. There is no pneumothorax. A left-sided post erior eighth rib fracture is evident with minimal inferior displacement. Osseous structures are other cam[place] unremarkable. IMPRESSION: 1. Interval development of a trace left pleural effusion. 2. Subsegmental bibasilar atelectasis. 3. Minimally inferiorly displaced left-sided rib fracture.
[2018-09-10 16:17] VITALS: BP 136/78; PULSE 76; TEMP 98
== END 2018-09-10 16:15 | disposition home or self-care (01) ==
LOC: EC 14:44
DX: R05 Cough (principal); S22.32XA Fracture of one rib, left side, initial encounter for closed fracture; J90 Pleural effusion, not elsewhere classified; E78.5 Hyperlipidemia, unspecified; I10 Essential (primary) hypertension; Z88.0 Allergy status to penicillin; Z88.2 Allergy status to sulfonamides; Z88.6 Allergy status to analgesic agent; Z88.8 Allergy status to other drugs, medicaments and biological substances; Z79.899 Other long term (current) drug therapy; Z80.1 Family history of malignant neoplasm of trachea, bronchus and lung; Z82.5 Family history of asthma and other chronic lower respiratory diseases; X58.XXXA Exposure to other specified factors, initial encounter
CPT/HCPCS: 71046; 99283

== ENCOUNTER → 2018-10-31 | Outpatient (CLI) | payer MEDICARE ==
--- NOTE | 2018-10-31 13:27 | XR ---
EXAMINATION TYPE: XR chest 2V DATE OF EXAM: 10/31/2018 COMPARISON: 09/10/2018 HISTORY: 73-year-old male with acute upper respiratory infection TECHNIQUE: Frontal and lateral views FINDINGS: The cardiomediastinal silhouette, aorta, and pulmonary vasculature are within normal limits. Some pat salvatore peripheral left basilar opacity may be slightly increased. The remaining lungs are clear. No pleu ral effusion. IMPRESSION: Some increased patchy infiltrate at the peripheral left base. Correlate for any symptoms of pneumonia .
== END | disposition home or self-care (01) ==
LOC: RADXRMAIN 10:29
PROVIDERS: ATTEND Internal Medicine
DX: R91.8 Other nonspecific abnormal finding of lung field (principal); J06.9 Acute upper respiratory infection, unspecified
CPT/HCPCS: 71046

== ENCOUNTER → 2019-06-11 | Outpatient (CLI) | payer MEDICARE ==
[2019-06-11 08:49] LABS: Basophils % (A) 1 %; Eosinophils # (A) 0.5 k/uL (0-0.7); Eosinophils % (A) 8 %; HCT 42.6 % (39.0-53.0); HGB 14.8 gm/dL (13.0-17.5); Lymphocytes # (A) 2.4 k/uL (1.0-4.8); Lymphocytes % (A) 36 %; MCH 31.1 pg (25.0-35.0); MCHC 34.8 g/dL (31.0-37.0); MCV 89.4 fL (80.0-100.0); Mean Platelet Volume 6.9; Monocytes # (A) 0.3 k/uL (0-1.0); Monocytes % (A) 5 %; Neutrophils # (A) 3.2 k/uL (1.3-7.7); Neutrophils % (A) 49 %; Platelet Count 128 k/uL (150-450); RBC 4.76 m/uL (4.30-5.90); RDW 12.2 % (11.5-15.5); WBC 6.6 k/uL (3.8-10.6)
[2019-06-11 17:30] LABS: African American GFR (CKD) 96.5 (60.0-200.0); Anion Gap 11.2 mmol/L (4.00-12.00); Carbon Dioxide 25.8 mmol/L (21.6-31.8); Potassium 3.6 mmol/L (3.5-5.5)
[2019-06-11 19:47] LABS: Hemoglobin A1C 6.7 % (4.0-6.0)
== END ==
LOC: LABWHC1 08:17
PROVIDERS: ATTEND Internal Medicine
DX: E11.65 Type 2 diabetes mellitus with hyperglycemia (principal)
CPT/HCPCS: 36415; 80048; 83036; 85025

== ENCOUNTER → 2019-08-25 | Outpatient (CLI) | payer MEDICARE ==
--- NOTE | 2019-08-25 16:17 | MR ---
EXAMINATION TYPE: MR shoulder LT wo con DATE OF EXAM: 08/25/2019 COMPARISON: None HISTORY: Lt shoulder pain Multiplanar multiecho imaging of the left shoulder was performed with no contrast. The glenoid prabhjot appear intact. Subscapularis tendon is intact. There is mild shoulder joint effusio n. The AC joint is intact. There is hypertrophic spurring at the AC joint. There is thickening and in creased signal in the supraspinatus tendon without retraction. There is full-thickness vertical defec t. There is no evidence of a fracture. Biceps tendon is intact. I see no focal bone destruction. The gle nohumeral joint is anatomic. IMPRESSION: Mild shoulder joint effusion consistent with synovitis. Full-thickness tear of the supraspinatus tendon without retraction. Moderate spurring of the AC joint and mild subacromial impingement.
== END | disposition home or self-care (01) ==
LOC: RADMRIMAIN 13:41
PROVIDERS: ATTEND Orthopaedic Surgery
DX: M75.122 Complete rotator cuff tear or rupture of left shoulder, not specified as traumatic (principal); M25.812 Other specified joint disorders, left shoulder

== ENCOUNTER 2019-10-08 09:59 | Day surgery (SDC) | payer MEDICARE ==
[2019-10-03 15:55] VITALS: BMI 27.8
--- NOTE | 2019-10-07 12:00 | HP ---
HISTORY AND PHYSICAL REASON FOR ADMISSION: Surgery is scheduled for 10/08/2019 HISTORY OF PRESENT ILLNESS: Arcenio Kidd is a 74-year-old patient seen with progressive left shoulder pain. We discussed options for treatment. He elected to proceed with arthroscopy. Consent was obtained. Medical clearance was provided by Dr. Greco. PAST MEDICAL HISTORY: Hypertension, ljm-ivfgqcs-iprzfomqc diabetes, hyperlipidemia. PAST SURGICAL HISTORY: Cataract surgery, cholecystectomy. MEDICATIONS: Daily medications are Lipitor, Norvasc, Klor-Con. ALLERGIES: ASPIRIN AND NSAIDS, PENICILLIN, SULFA, LON INHIBITORS. SOCIAL HISTORY: Denies tobacco use. PHYSICAL EXAMINATION: Evaluation of the left shoulder, flexion is 80 degrees, abduction 60 degrees, external rotation is 30 degrees with pain and weakness. There is tenderness along the anterior lateral acromion and rotator cuff insertion site. Impingement sign is positive at 80 degrees. Drop-arm sign is positive. Distal neurovascular exam is intact. RADIOGRAPHS: Left shoulder revealed a type 2 anterior acromion, acromioclavicular joint osteoarthritis and cystic changes of the greater tuberosity. The left shoulder MRI revealed rotator cuff tear and acromioclavicular joint osteoarthritis. IMPRESSION: 1. Left shoulder impingement with rotator cuff tear. 2. Left shoulder acromioclavicular joint osteoarthritis. 3. Hypertension. 4. Hyperlipidemia. PLAN: Left shoulder arthroscopy with subacromial decompression, arthroscopic rotator cuff repair, Amanda procedure and debridement. Surgery 10/08/2019. MMODL / IJN: [id number] /
[~2019-10-08 09:59] MED LIST: DEXAMETHASONE SOD PHOSPHATE 10 MG/ML 1 ML VIAL IV ONE; HYDROmorphone 0.5 MG/0.5 ML SYRINGE IVP PRN; LACTATED RINGERS 1,000 ML IV SCH; MIDAZOLAM 2 MG/2 ML VIAL IV PRN; ONDANSETRON 4 MG/2 ML VIAL IVP ONE
[2019-10-08] MEDS ORDERED: MIDAZOLAM 2 MG/2 ML VIAL IVP ONE (10:58)
--- NOTE | 2019-10-08 11:27 | P.ANPRN ---
Procedure Note - Anesthesia - Nerve Block Performed Left Interscalene Single Time Out Performed: Yes Date of Procedure: 10/08/19 Procedure Start Time: 10:55 Procedure Stop Time: 11:00 Location of Patient: PreOp Indication: Acute Post-Operative Pain, Dx/Pain Location, Requested by Surgeon Sedation Type: Sedate with meaningful contact maintained Preparation: Sterile Prep Position: Supine Catheter: None Needle Types: Pajunk Needle Gauge: 21 Ultrasound used to visualize needle placement: Yes Ultrasound used to observe medication spread: Yes Injectate: 0.5% Ropivacaine (see comment for volume) (20ml) Blood Aspirated: No Pain Paresthesia on Injection Noted: No Resistance on Injection: Normal Image Stored and Saved: Yes Events: Uneventful and Well Tolerated
[2019-10-08] MEDS ORDERED: PROPOFOL 10 MG/ML 20 ML VIAL IV ONE (12:35)
[2019-10-08] MEDS ORDERED: LIDOCAINE 1% INJ 10MG/ML (20 ML MDV) ONE (12:35)
[2019-10-08] MEDS ORDERED: ROCURONIUM BROMIDE 10 MG/ML 10 ML VIAL IV ONE (12:35)
[2019-10-08] MEDS ORDERED: MIDAZOLAM 2 MG/2 ML VIAL ONE (12:35)
[2019-10-08] MEDS ORDERED: SUCCINYLCHOLINE CHLORIDE 100 MG/5 ML SYR IV ONE (12:35)
[2019-10-08] MEDS ORDERED: ROPIVACAINE 5 MG/ML 30 ML VIAL ONE (12:35)
[2019-10-08] MEDS ORDERED: fentaNYL (PF) 50 MCG/ML 2 ML AMP ONE (12:35)
[2019-10-08] MEDS ORDERED: LACTATED RINGERS 1,000 ML IV ONE (13:48)
[2019-10-08 14:23] VITALS: TEMP 96.8
--- NOTE | 2019-10-08 14:26 | P.OP ---
Date of Procedure: 10/08/19 Preoperative Diagnosis: Left shoulder impingement Postoperative Diagnosis: 1. Left shoulder rotator cuff tear 2. Left shoulder impingement 3. Left shoulder acromioclavicular joint osteoarthritis 4. Left shoulder partial long head biceps tendon tear 5. Left shoulder superficial labral tear Procedure(s) Performed: 1. Left shoulder arthroscopic rotator cuff repair 2. Left shoulder arthroscopic subacromial decompression 3. Left shoulder arthroscopic Amanda procedure 4. Left shoulder arthroscopic biceps tenotomy 5. Left shoulder arthroscopic debridement labral tear Implants: 1Arthrex 5.5 swivel lock anchor Anesthesia: GETA, regional (Interscalene block) Surgeon: Dash Burks Furniture Sander #1: Dm Escoto Estimated Blood Loss (ml): 10 Pathology: none sent Condition: stable Disposition: PACU Indications for Procedure: 74-year-old patient seen with progressive left shoulder pain. After treatment options were discussed, he elected to proceed with arthroscopy. Operative Findings: see description of procedure Description of Procedure: Patient underwent an interscalene block by department of anesthesia. The patient was then taken to the operative suite. The patient underwent a general anesthetic by the department of anesthesia. The patient was placed into a lateral position and secured. There was appropriate padding of the bony prominence. Left shoulder was then prepped and draped in normal sterile orthopedic fashion. We placed the extremity in 10 pounds of longitudinal traction. A posterior incision was now made for a posterior working portal site. The trocar and cannula were inserted into the glenohumeral joint. Arthroscopy was initiated. Spinal needle was now inserted anteriorly, to ascertain the anterior working portal site. An incision was now made in that area, a trocar was inserted followed by a probe. There was superficial tearing of the superior labrum. There were grade 1 chondromalacia changes of the humeral head and glenoid fossa with no osteochondral tears present. There was a rotator cuff tendon visualized from glenohumeral side which appeared to be along the posterior distal supraspinatus. There was some partial tearing and hyperemia long head biceps tendon. I performed a arthroscopic biceps tenotomy. I debrided the superficial labral tear getting down to stable labral tissue. The residual labrum was stable. Instruments now removed from glenohumeral joint. Utilizing the posterior working portal site, the trocar and cannula were inserted into the subacromial space. Arthroscopy initiated. I made an incision 2 fingerbreadths lateral to the acromion. I introduced my trocar followed by my ArthroCare ablator. I now began ablating thick subacromial bursal tissue, which exposed the undersurface of the anterior acromion. There was diminished subacromial space. There was a very prominent anterior acromion. A motorized bur was introduced and a subacromial decompression was performed. I also excised some osteophytes off the inferior aspect of the distal clavicle. The AC joint was visualized and noted to be fairly arthritic. The motorized bur was introduced in the anterior portal site and a Amanda procedure was performed without difficulty, decompressing the AC joint nicely. I turned my attention to the rotator cuff. There was a 1.5 cm rotator cuff tear which appeared to be along the posterior aspect of the distal supraspinatus. I debrided the margins getting down to stable tendon tissue. I abraded the footprint with a motorized bur. We now passed 2 everted mattress sutures through good bites of rotator cuff tendon with the assistance of Homer RIVERO. I now punched a hole in the footprint area for insertion of an anchor. All 4 limbs of suture were now passed to the islet of a 5.5 Arthrex swivel lock anchor. I now introduced the islet into our pre-punch hole. I held that in position on the Homer RIVERO tensioned the sutures appropriately and then deployed the anchor with good fixation noted.. All residual suture limbs were now clipped. We had good compression of the tendon along the entire footprint. I injected 1 mL Renyte intra-articular. Instruments now removed from the portal sites. All portal sites were approximated with nylon suture. Sterile dressings were applied followed by a shoulder sling. Dm RIVERO assisted in this case. The patient was awakened, transferred to a bed, and taken to recovery in stable condition.
[2019-10-08 14:32] VITALS: RESP 16
[2019-10-08 15:51] VITALS: BP 149/80; PULSE 77
== END 2019-10-08 16:10 | disposition home or self-care (01) ==
LOC: OR 09:59
PROVIDERS: ATTEND Orthopaedic Surgery
DX: M75.102 Unspecified rotator cuff tear or rupture of left shoulder, not specified as traumatic (principal); M75.42 Impingement syndrome of left shoulder; M19.012 Primary osteoarthritis, left shoulder; S43.432A Superior glenoid labrum lesion of left shoulder, initial encounter; X58.XXXA Exposure to other specified factors, initial encounter; M94.212 Chondromalacia, left shoulder; M25.712 Osteophyte, left shoulder; I10 Essential (primary) hypertension; E11.9 Type 2 diabetes mellitus without complications; E78.5 Hyperlipidemia, unspecified; Z90.49 Acquired absence of other specified parts of digestive tract; Z98.49 Cataract extraction status, unspecified eye; Z97.2 Presence of dental prosthetic device (complete) (partial); Z79.899 Other long term (current) drug therapy; Z88.6 Allergy status to analgesic agent; Z88.0 Allergy status to penicillin; Z88.2 Allergy status to sulfonamides; Z88.8 Allergy status to other drugs, medicaments and biological substances
CPT/HCPCS: 64415; 76942; 29826; 29827; 29824; C1713 ×2; Q4212; J2250; J1100; J0690; J2405; J2001; J3010; J2795; J0330; J2704

== ENCOUNTER → 2020-01-24 | Outpatient (CLI) | payer MEDICARE ==
[2020-01-24 12:18] LABS: Basophils # (A) 0.1 k/uL (0-0.2); Basophils % (A) 1 %; Eosinophils # (A) 0.5 k/uL (0-0.7); Eosinophils % (A) 7 %; HCT 45.4 % (39.0-53.0); HGB 14.5 gm/dL (13.0-17.5); Lymphocytes # (A) 2.1 k/uL (1.0-4.8); Lymphocytes % (A) 34 %; MCH 29.2 pg (25.0-35.0); MCV 91.2 fL (80.0-100.0); Mean Platelet Volume 8.8; Monocytes # (A) 0.3 k/uL (0-1.0); Monocytes % (A) 5 %; Neutrophils # (A) 3.2 k/uL (1.3-7.7); Neutrophils % (A) 51 %; Platelet Count 125 k/uL (150-450); RBC 4.98 m/uL (4.30-5.90); RDW 12.3 % (11.5-15.5); WBC 6.3 k/uL (3.8-10.6)
[2020-01-24 19:30] LABS: African American GFR (CKD) 96.5 (60.0-200.0); Anion Gap 7.4 mmol/L (4.00-12.00); BUN/Creat Ratio 16.67 Ratio (12.00-20.00); Calcium 9.4 mg/dL (8.7-10.3); Carbon Dioxide 27.6 mmol/L (21.6-31.8); Non-African American GFR(CKD) 83.3 (60.0-200.0); Potassium 3.9 mmol/L (3.5-5.5)
[2020-01-24 21:21] LABS: Hemoglobin A1C 7.4 % (4.0-6.0)
== END | disposition home or self-care (01) ==
LOC: LABWHC1 08:56
PROVIDERS: ATTEND Internal Medicine
DX: E11.21 Type 2 diabetes mellitus with diabetic nephropathy (principal)
CPT/HCPCS: 36415; 80048; 83036; 85025

== ENCOUNTER → 2020-03-06 | Outpatient (CLI) | payer MEDICARE ==
[2020-03-06 08:53] LABS: Basophils # (A) 0.1 k/uL (0-0.2); Basophils % (A) 1 %; Eosinophils # (A) 0.4 k/uL (0-0.7); Eosinophils % (A) 7 %; HCT 44.4 % (39.0-53.0); HGB 15.3 gm/dL (13.0-17.5); Lymphocytes % (A) 35 %; MCH 31.2 pg (25.0-35.0); MCHC 34.5 g/dL (31.0-37.0); MCV 90.6 fL (80.0-100.0); Mean Platelet Volume 9.1; Monocytes # (A) 0.3 k/uL (0-1.0); Monocytes % (A) 5 %; Neutrophils % (A) 51 %; Platelet Count 126 k/uL (150-450); RBC 4.91 m/uL (4.30-5.90); RDW 12.4 % (11.5-15.5); WBC 5.9 k/uL (3.8-10.6)
[2020-03-06 16:50] LABS: African American GFR (CKD) 96.5 (60.0-200.0); Anion Gap 7.3 mmol/L (4.00-12.00); Calcium 9.2 mg/dL (8.7-10.3); Carbon Dioxide 26.7 mmol/L (21.6-31.8); Non-African American GFR(CKD) 83.3 (60.0-200.0); Potassium 3.9 mmol/L (3.5-5.5)
[2020-03-06 19:51] LABS: Hemoglobin A1C 6.8 % (4.0-6.0)
== END | disposition home or self-care (01) ==
LOC: LABWHC1 08:02
PROVIDERS: ATTEND Internal Medicine
DX: E11.21 Type 2 diabetes mellitus with diabetic nephropathy (principal)
CPT/HCPCS: 36415; 80048; 83036; 85025

== ENCOUNTER → 2020-09-11 | Outpatient (CLI) | payer MEDICARE ==
[2020-09-11 15:57] LABS: African American GFR (CKD) 106.2 (60.0-200.0); Albumin 3.9 g/dL (3.80-4.90); Albumin/Globulin Ratio 1.77 (1.60-3.17); Anion Gap 9.8 mmol/L (4.00-12.00); BUN/Creat Ratio 18.57 Ratio (12.00-20.00); Carbon Dioxide 24.2 mmol/L (21.6-31.8); Chol/HDL Ratio 3.33; Globulin 2.2 g/dL (1.6-3.3); LDL Cholesterol,Calculated 69.6 mg/dL (0.0-131.0); Non-African American GFR(CKD) 91.7 (60.0-200.0); Potassium 3.4 mmol/L (3.5-5.5); Total Bilirubin 0.7 mg/dL (0.3-1.2); Total Protein 6.1 g/dL (6.2-8.2); VLDL Calculation 23.4 mg/dL (5.00-40.00)
== END | disposition home or self-care (01) ==
LOC: LABWHC1 09:02
PROVIDERS: ATTEND Internal Medicine Geriatric Medicine
DX: R73.9 Hyperglycemia, unspecified (principal)
CPT/HCPCS: 36415; 80053; 80061; 83036

== ENCOUNTER → 2020-09-26 | Outpatient (CLI) | payer MEDICARE ==
--- NOTE | 2020-09-27 10:34 | XR ---
EXAMINATION TYPE: XR chest 2V DATE OF EXAM: 09/26/2020 COMPARISON: Chest x-ray 10/31/2018 HISTORY: U07.1, history Covid pneumonia TECHNIQUE: Frontal and lateral views of the chest are obtained. FINDINGS: Increased AP diameter of the chest is noted. There is thoracic spondylosis. Patchy bilater al basilar and peripheral density noted within the lungs in comparison to prior exam. No evident pneu mothorax or pleural effusion. Cardiac mediastinal silhouette is likely stable accounting for rotation . There is elevation of right hemidiaphragm. Bones are stable. IMPRESSION: Correlate for pneumonia, atelectasis, scar.
== END | disposition home or self-care (01) ==
LOC: RADXRMAIN 15:54
PROVIDERS: ATTEND Internal Medicine Geriatric Medicine
DX: U07.1 COVID-19 (principal)
CPT/HCPCS: 71046

== ENCOUNTER → 2020-10-28 | Outpatient (CLI) | payer MEDICARE ==
--- NOTE | 2020-10-28 12:14 | XR ---
EXAMINATION TYPE: XR chest 2V DATE OF EXAM: 10/28/2020 COMPARISON: 09/26/2020 INDICATION: History of COVID, pneumonia TECHNIQUE: Frontal and lateral views of the chest are obtained. FINDINGS: The heart size is normal. The pulmonary vasculature is normal. Peripheral infiltrates are present through the mid and lower right lung field and in the lower left l sheri field. IMPRESSION: 1. Peripheral nonspecific infiltrates can be compatible with an atypical pneumonia. Findings are kd lar to comparison August.
== END | disposition home or self-care (01) ==
LOC: RADXRMAIN 10:45
PROVIDERS: ATTEND Internal Medicine Geriatric Medicine
DX: R91.8 Other nonspecific abnormal finding of lung field (principal); J18.9 Pneumonia, unspecified organism
CPT/HCPCS: 71046

== ENCOUNTER → 2020-11-12 | Outpatient (CLI) | payer MEDICARE ==
[2020-11-12 16:20] LABS: African American GFR (CKD) >90 (>60 ml/min/1.73 sqM); Blood Urea Nitrogen 15 mg/dL (9-20); Non-African American GFR(CKD) >90 (>60 ml/min/1.73 sqM)
--- NOTE | 2020-11-12 17:03 | CT ---
EXAMINATION TYPE: CT chest w con DATE OF EXAM: 11/12/2020 COMPARISON: Chest x-ray 15 days ago and older studies HISTORY: Pulmonary fibrosis. Pt experiencing issues since having Covid in July CT DLP: 341.10 mGycm. Automated Exposure Control for Dose Reduction was Utilized. TECHNIQUE: CT scan of the thorax is performed following with IV Contrast, patient injected with 100 mL of Isovue 300. FINDINGS: LUNGS: Moderate to borderline advanced pulmonary fibrotic change and reticulation is now present with interval progression from older studies. Findings more prominent in the lower lungs versus upper shelli gs. No pleural effusion or pneumothorax noted bilaterally. No suspicious pulmonary masses. MEDIASTINUM: There are prominent but subcentimeter bilateral hilar lymph nodes . No pericardial eff usion is seen. Cardiomegaly with coronary artery calcification and/or stents OTHER: Small sized hiatal hernia. Cholecystectomy clips. Moderate multilevel spurring in the spine. IMPRESSION: Moderate to advanced pulmonary fibrotic changes greatest in the periphery and in the lowe r lungs with continued interval progression from older x-rays.
== END ==
LOC: RADCTMAIN 15:36
PROVIDERS: ATTEND Internal Medicine Critical Care Medicine
DX: J84.10 Pulmonary fibrosis, unspecified (principal)
CPT/HCPCS: 82565; 84520; 71260; 36415; Q9967

== ENCOUNTER → 2020-11-17 | Outpatient (CLI) | payer MEDICARE ==
[2020-11-17 17:04] LABS: African American GFR (CKD) 100.6 (60.0-200.0); Albumin 4.3 g/dL (3.80-4.90); Albumin/Globulin Ratio 2.53 (1.60-3.17); BUN/Creat Ratio 17.5 Ratio (12.00-20.00); Calcium 9.3 mg/dL (8.7-10.3); Globulin 1.7 g/dL (1.6-3.3); Non-African American GFR(CKD) 86.8 (60.0-200.0); Total Bilirubin 0.7 mg/dL (0.2-1.2)
== END | disposition home or self-care (01) ==
LOC: LABWHC1 09:28
PROVIDERS: ATTEND Internal Medicine Geriatric Medicine
DX: I10 Essential (primary) hypertension (principal)
CPT/HCPCS: 36415; 80053

== ENCOUNTER → 2021-07-20 | Outpatient (CLI) | payer MEDICARE ==
[2021-07-20 14:28] LABS: African American GFR (CKD) >90 (>60 ml/min/1.73 sqM); Blood Urea Nitrogen 23 mg/dL (9-20); Non-African American GFR(CKD) 83 (>60 ml/min/1.73 sqM)
--- NOTE | 2021-07-20 15:55 | CT ---
EXAMINATION TYPE: CT chest w con DATE OF EXAM: 07/20/2021 COMPARISON: Chest CT November 12, 2020. Prior chest x-ray December 22, 2020 and older x-rays 2019. HISTORY: pulmonary fibrosis. Hx Covid infection CT DLP: 359.9 mGycm. Automated Exposure Control for Dose Reduction was Utilized. TECHNIQUE: CT scan of the thorax is performed following with IV Contrast, patient injected with 100 mL of Isovue 300. FINDINGS: LUNGS: Moderate to severe peripheral reticulation and fibrotic change bilaterally is redemonstrated. There is additional qjvr-jn-mxbefzns is bibasilar linear scarring. No significant change from prior CT. Findings are more prominent from the 2019 x-ray though there was findings of fibrosis present the n. No new focal consolidation There is no pleural effusion or pneumothorax seen. The tracheobronchia l tree is patent. MEDIASTINUM: There are no greater than 1 cm hilar or mediastinal lymph nodes. No pericardial effusi on is seen. Cardiomegaly redemonstrated along with coronary artery calcifications. Stable small size d hiatal hernia. OTHER: Cholecystectomy clips redemonstrated. Exaggerated thoracic kyphosis with moderate multilevel s purring. IMPRESSION: Moderate peripheral parenchymal fibrotic changes redemonstrated bilaterally throughout th e upper to mid lungs slightly more prominent in the lower lungs where there is additional mild to mod erate bibasilar scarring. No significant change or progression from prior CT. No new acute pulmonary process.
== END | disposition home or self-care (01) ==
LOC: RADCTMAIN 13:46
PROVIDERS: ATTEND Internal Medicine Critical Care Medicine
DX: J84.112 Idiopathic pulmonary fibrosis (principal); Z86.16 Personal history of COVID-19
CPT/HCPCS: 82565; 84520; 71260; 36415; Q9967

== ENCOUNTER → 2022-07-29 | Outpatient (CLI) | payer MEDICARE ==
--- NOTE | 2022-07-30 04:27 | MR ---
EXAMINATION TYPE: MR shoulder RT wo con DATE OF EXAM: 07/29/2022 COMPARISON: None HISTORY: Right shoulder pain x 6 mos. Multiplanar multiecho imaging of the right shoulder performed with no contrast. There is shoulder joint effusion. There is subdeltoid effusion. There is thickening and increased sig nal in the supraspinatus tendon over the top of the humeral head. There is full-thickness defect in t he supraspinatus tendon. There is fluid around the biceps tendon. The subscapularis tendon is intact. The glenoid prabhjot appear intact. There is a rounded 1 cm low signal focus within the joint effusion which is anterior to the subscapularis tendon and likely site of synovial chondromatosis. There is moderate hypertrophic spurring at the AC joint with subacromial impingement. No fracture see n. Humeral head is intact. IMPRESSION: Full-thickness tear of the supraspinatus tendon with thickening and edema. Moderate shoulder joint ef fusion and subdeltoid effusion. 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
== END | disposition home or self-care (01) ==
LOC: RADMRIMAIN 18:36
PROVIDERS: ATTEND Orthopaedic Surgery
DX: D48.0 Neoplasm of uncertain behavior of bone and articular cartilage (principal); M75.111 Incomplete rotator cuff tear or rupture of right shoulder, not specified as traumatic; M25.411 Effusion, right shoulder

== ENCOUNTER 2022-09-23 07:12 | Day surgery (SDC) | payer MEDICARE ==
[2022-09-23] MEDS ORDERED: LACTATED RINGERS 1,000 ML IV SCH (07:28)
[2022-09-23] MEDS ORDERED: HYDROmorphone 0.5 MG/0.5 ML SYRINGE IVP PRN (07:28)
[2022-09-23] MEDS ORDERED: ONDANSETRON 4 MG/2 ML VIAL IVP ONE (07:28)
[2022-09-23] MEDS ORDERED: DEXAMETHASONE SOD PHOSPHATE 4 MG/ML 1 ML VIAL IV ONE (07:28)
[2022-09-23] MEDS ORDERED: MIDAZOLAM 2 MG/2 ML VIAL IV PRN (07:28)
--- NOTE | 2022-09-23 07:39 | HP ---
HISTORY AND PHYSICAL DATE OF SURGERY: 09/23/2022. HISTORY OF PRESENT ILLNESS: Arcenio Kidd is a 77-year-old gentleman, seen with progressive right shoulder pain. We discussed options for treatment. He elected to proceed with right shoulder arthroscopy. Consent regarding the procedure was obtained. Medical clearance was provided. PAST MEDICAL HISTORY: Hypertension, hyperlipidemia, and gui-affsnjo-yarufeboz diabetes. PAST SURGICAL HISTORY: Cataract surgery, cholecystectomy, and oral surgery daily. DAILY MEDICATIONS: 1. Klor-Con. 2. Lipitor. 3. Norvasc. 4. Vitamins. ALLERGIES: 1. Aspirin. 2. NSAID. 3. Sulfa. 4. Penicillin. SOCIAL HISTORY: Denies tobacco use. PHYSICAL EVALUATION OF THE RIGHT SHOULDER: Flexion is 120 degrees, abduction is 120 degrees, external rotation is 30 degrees with pain and weakness. There is tenderness along the anterolateral acromion and rotator cuff insertion site. Impingement is positive at 90 degrees. Cross-body adduction sign is positive. Drop-arm sign is positive. Distal neurovascular exam is intact. IMAGING STUDIES: Radiographs of the right shoulder revealed a type 2 acromion, evidence for acromioclavicular joint osteoarthritis and calcific changes of the tendon. MRI of the right shoulder revealed rotator cuff tendon tear, acromioclavicular joint osteoarthritis as well as impingement. IMPRESSION: 1. Right shoulder impingement with rotator cuff tear. 2. Right shoulder acromioclavicular joint osteoarthritis. 3. Hypertension. 4. Hyperlipidemia. 5. Tur-xvlwyvo-hjiolcnol diabetes. PLAN: Right shoulder arthroscopy with subacromial decompression, rotator cuff repair, Amanda procedure, and debridement. MMODL / IJN: [id number] /
[2022-09-23 08:10] LABS: Glucose,Whole Blood 103 mg/dL (70-110)
[2022-09-23] MEDS ORDERED: MIDAZOLAM 2 MG/2 ML VIAL IVP ONE (08:21)
--- NOTE | 2022-09-23 09:13 | P.ANPRN ---
Procedure Note - Anesthesia - Nerve Block Performed Right Interscalene Single Time Out Performed: Yes Date of Procedure: 09/23/22 Procedure Start Time: :20 Procedure Stop Time: :30 Location of Patient: PreOp Indication: Acute Post-Operative Pain, Requested by Surgeon Sedation Type: Sedate with meaningful contact maintained Preparation: Sterile Prep, Sterile Dressing Position: Sitting Catheter: None Needle Types: Facet Needle Gauge: 21 Ultrasound used to visualize needle placement: Yes Ultrasound used to observe medication spread: Yes Injectate: 0.5% Ropivacaine (see comment for volume) (20 ml + decadron 4 mg) Blood Aspirated: No Pain Paresthesia on Injection Noted: No Resistance on Injection: Normal Image Stored and Saved: Yes Events: Uneventful and Well Tolerated
[2022-09-23] MEDS ORDERED: ePHEDrine 50 MG/ML 1 ML VIAL ONE (09:34)
[2022-09-23] MEDS ORDERED: WATER FOR INJECTION, STERILE 10 ML VIAL IV ONE (09:34)
[2022-09-23] MEDS ORDERED: MIDAZOLAM 2 MG/2 ML VIAL ONE (09:34)
[2022-09-23] MEDS ORDERED: DEXAMETHASONE SOD PHOSPHATE 4 MG/ML 1 ML VIAL ONE (09:34)
[2022-09-23] MEDS ORDERED: LIDOCAINE 2% INJ 20 MG/ML (2 ML VIAL) ONE (09:34)
[2022-09-23] MEDS ORDERED: PROPOFOL 10 MG/ML 20 ML VIAL IV ONE (09:34)
[2022-09-23] MEDS ORDERED: SUCCINYLCHOLINE CHLORIDE 200 MG/10 ML VIAL IV ONE (09:34)
[2022-09-23] MEDS ORDERED: ROPIVACAINE 5 MG/ML 30 ML VIAL ONE (09:34)
[2022-09-23] MEDS ORDERED: fentaNYL (PF) 50 MCG/ML 2 ML AMP ONE (09:34)
[2022-09-23] MEDS ORDERED: LACTATED RINGERS 1,000 ML IV ONE (11:07)
--- NOTE | 2022-09-23 11:12 | P.OP ---
Date of Procedure: 09/23/22 Preoperative Diagnosis: Right shoulder impingement Postoperative Diagnosis: 1. Right shoulder rotator cuff tear 2. Right shoulder impingement 3. Right shoulder acromioclavicular joint osteoarthritis 4. Right shoulder partial long head biceps tendon tear Procedure(s) Performed: 1. Right shoulder arthroscopic rotator cuff repair 2. Right shoulder arthroscopic subacromial decompression 3. Right shoulder arthroscopic Amanda procedure 4. Right shoulder arthroscopic biceps tenotomy Implants: 14.75 Arthrex swivel lock anchor Anesthesia: GETA, regional (Interscalene block) Surgeon: Dash Burks Java User Interface Developer #1: Dm Escoto Estimated Blood Loss (ml): 11 Pathology: none sent Condition: stable Disposition: PACU Indications for Procedure: 77-year-old patient seen with progressive right shoulder pain. After having treatment options discussed, he elected to proceed with arthroscopy. Operative Findings: See description of procedure Description of Procedure: Patient underwent an interscalene block by department of anesthesia. The patient was then taken to the operative suite. The patient underwent a general anesthetic by the department of anesthesia. The patient was placed into a lateral position and secured. There was appropriate padding of the bony prominence. Right shoulder was then prepped and draped in normal sterile orthopedic fashion. We placed the extremity in 10 pounds of longitudinal traction. A posterior incision was now made for a posterior working portal site. The trocar and cannula were inserted into the glenohumeral joint. Arthroscopy was initiated. Spinal needle was now inserted anteriorly, to ascertain the anterior working portal site. An incision was now made in that area, a trocar was inserted followed by a probe. There was partial tearing long head biceps tendon along with some hyperemia. There was some mild superficial fraying of the superior labrum. There were grade 2 chondromalacia changes throughout the glenohumeral joint. I performed arthroscopic biceps tenotomy. I debrided out the superficial labral tear. Residual labrum was stable. Instruments were now removed from glenohumeral joint. Utilizing the posterior working portal site, the trocar and cannula were inserted into the subacromial space. Arthroscopy initiated. I made an incision 2 fingerbreadths lateral to the acromion. I introduced my trocar followed by my ArthroCare ablator. I now began ablating thick subacromial bursal tissue, which exposed the undersurface of the anterior acromion. There was diminished subacromial space. There was a very prominent anterior acromion. A motorized bur was introduced and a subacromial decompression was performed. I also excised some osteophytes off the inferior aspect of the distal clavicle. The AC joint was visualized and noted to be fairly arthritic. The motorized bur was introduced in the anterior portal site and a Amanda procedure was performed without difficulty, decompressing the AC joint nicely. I turned my attention to the rotator cuff. There was a full-thickness perforation distal supraspinatus. I debrided the margins getting down to stable tendon tissue. The defect/tear measuring 1.5 cm and was freely mobile over the footprint. I abraded the footprint with a motorized bur. With the assistance of Homer RIVERO a past 3 everted mattress sutures through good bites of rotator cuff tendon. A punch hole the footprint area for insertion of an anchor. All 6 limbs of suture were passed through the eyelet of a 4.75 Arthrex swivel lock anchor. I now placed the eyelet into the pre-punch hole. I the eyelet prepunched hole while Homer RIVERO tensioned all 6 limbs of suture and deployed the anchor with good fixation noted All residual suture limbs were now clipped. We had good compression of the tendon along the entire footprint. Instruments now removed from the portal sites. All portal sites were approximated with nylon suture. Sterile dressings were applied followed by a shoulder sling. Dm RIVERO assisted in this complex case. The patient was awakened, transferred to a bed, and taken to recovery in stable condition.
[2022-09-23 11:19] VITALS: TEMP 97
[2022-09-23 11:49] VITALS: RESP 20
[2022-09-23 12:31] VITALS: BP 132/70; PULSE 80
== END 2022-09-23 12:40 | disposition home or self-care (01) ==
LOC: OR 07:12
PROVIDERS: ATTEND Orthopaedic Surgery
DX: M75.41 Impingement syndrome of right shoulder (principal); M75.101 Unspecified rotator cuff tear or rupture of right shoulder, not specified as traumatic; M19.011 Primary osteoarthritis, right shoulder; S46.111A Strain of muscle, fascia and tendon of long head of biceps, right arm, initial encounter; I10 Essential (primary) hypertension; E78.5 Hyperlipidemia, unspecified; E11.9 Type 2 diabetes mellitus without complications; Z90.49 Acquired absence of other specified parts of digestive tract; Z98.41 Cataract extraction status, right eye; Z98.42 Cataract extraction status, left eye; Z98.890 Other specified postprocedural states; Z79.899 Other long term (current) drug therapy; Z88.0 Allergy status to penicillin; Z88.6 Allergy status to analgesic agent; Z88.2 Allergy status to sulfonamides
CPT/HCPCS: 64415; 76942; 29827; 29826; 29824; C1713; J2250; J0330; J1100; J0690; J2405; J3010; J2795; J2704; J2001

== ENCOUNTER → 2023-03-23 | Outpatient (CLI) | payer MEDICARE ==
--- NOTE | 2023-03-23 09:56 | XR ---
EXAMINATION TYPE: XR lumbar spine 2 or 3V DATE OF EXAM: 03/23/2023 CLINICAL HISTORY: Back pain TECHNIQUE: Three views of the lumbar spine are submitted. COMPARISON: MRI lumbar spine 11/15/2015 FINDINGS: There are 5 lumbar type vertebral bodies identified. No acute fracture or dislocation. Mild anterior wedging of the T12 vertebral body with approximately 10% height loss and no retropulsion. Mild retrol isthesis of L2 on L3 and L3 and L4. Grade 1 anterolisthesis of L5 and S1. Multilevel degenerative dis c disease with disc space narrowing, endplate sclerosis, and anterior osteophytosis. Multilevel facet arthropathy. Atherosclerotic calcification of the aorta. Soft tissues appear unremarkable. IMPRESSION: 1. No acute fracture or dislocation is seen in the lumbar spine. 2. Chronic appearing T12 anterior wedge compression deformity with approximately 10% height loss and no retropulsion. Correlate point tenderness. 3. Mild retrolisthesis of L2 on L3 and L3 and L4. Grade 1 anterolisthesis of L5 and S1. 4. Moderate multilevel degenerative disc disease and facet arthropathy.
== END | disposition home or self-care (01) ==
LOC: RADXRMAIN 09:21
PROVIDERS: ATTEND Internal Medicine Geriatric Medicine
DX: M51.36 Other intervertebral disc degeneration, lumbar region (principal); M48.54XA Collapsed vertebra, not elsewhere classified, thoracic region, initial encounter for fracture; M47.816 Spondylosis without myelopathy or radiculopathy, lumbar region; M43.16 Spondylolisthesis, lumbar region
CPT/HCPCS: 72100

== ENCOUNTER → 2024-12-24 | Outpatient (CLI) | payer MEDICARE ==
--- NOTE | 2024-12-24 21:20 | XR ---
EXAMINATION TYPE: XR chest 2V DATE OF EXAM: 12/24/2024 11:58 AM COMPARISON: 12/22/2020 CLINICAL INDICATION: Male, 79 years old with history of R05.9 Cough, , TECHNIQUE: Frontal and lateral views FINDINGS: Heart is borderline in size. Mild diffuse interstitial density. DISH and lower thoracic spine. No fra nk consolidation or pleural effusion. IMPRESSION: 1. Borderline heart size. 2. Interstitial density appears to have increased. Consider underlying fibrosis, atypical pneumonias, or interstitial pneumonitis as some possible etiologies. [facility], Workstation: [id number], 12/24/2024 9:17 PM
== END | disposition home or self-care (01) ==
LOC: RADXRMAIN 11:43
PROVIDERS: ATTEND Internal Medicine Geriatric Medicine
DX: J84.89 Other specified interstitial pulmonary diseases (principal); I51.7 Cardiomegaly
CPT/HCPCS: 71046

== ENCOUNTER → 2025-03-14 | Outpatient (CLI) | payer MEDICARE ==
--- NOTE | 2025-03-14 22:00 | XR ---
EXAMINATION TYPE: XR chest 2V DATE OF EXAM: 03/14/2025 2:27 PM COMPARISON: 12/24/2024 CLINICAL INDICATION: Male, 79 years old with history of R05.9 COUGH, UNSPECIFIED, , TECHNIQUE: Frontal and lateral views FINDINGS: Heart upper limits of normal in size. Mild interstitial densities. Some reticular densities in the pe riphery of the mid to lower lungs. Old left-sided rib fracture deformity. Mild central peribronchial cuffing. -Mid and lower thoracic spine. No consolidation or pleural effusion. IMPRESSION: 1. Borderline heart size. 2. Continued interstitial/reticular densities in the peripheral lungs and lower lungs. There may be s ome underlying interstitial pneumonitis or interstitial fibrosis. Consider CT for more detailed paren chymal assessment if indicated. [facility], , 03/14/2025 9:58 PM
== END | disposition home or self-care (01) ==
LOC: RADXRMAIN 14:15
PROVIDERS: ATTEND Internal Medicine Geriatric Medicine
DX: J98.4 Other disorders of lung (principal)
CPT/HCPCS: 71046

== ENCOUNTER → 2025-03-29 | Outpatient (CLI) | payer MEDICARE ==
[2025-03-29 12:39] LABS: African American GFR (CKD) >90 (>60 ml/min/1.73 sqM); Blood Urea Nitrogen 17 mg/dL (9-20); Non-African American GFR(CKD) 82 (>60 ml/min/1.73 sqM)
--- NOTE | 2025-03-29 15:51 | CT ---
EXAMINATION TYPE: CT chest w con DATE OF EXAM: 03/29/2025 COMPARISON: 07/20/2021 CLINICAL INDICATION: Male, 80 years old with history of R05.9 COUGH, UNSPECIFIED; PHH, abnormal cxr TECHNIQUE: CT scan of the chest is performed with IV Contrast, patient injected with 100 mL of Isovue 300. MIP Images are created on CT scanner and reviewed. 3D reconstructed images are created on an independent workstation and reviewed. CT DLP: 390 mGycm Automated exposure control for dose reduction was used. FINDINGS: LUNGS: Generalized emphysematous changes with interlobular septal thickening involving the periphery and lung bases compatible with pulmonary fibrosis. Favor UIP type. No acute consolidative pneumonia. No pulmonary edema. No suspicious appearing pulmonary mass. Calcified granuloma right lower lobe. Add itional pulmonary micronodules measuring 1 to 2 mm which have a benign appearance. MEDIASTINUM: The heart is enlarged and there is coronary artery calcification. Trace amount of perica rdial fluid. Small hiatal hernia. OTHER: Multilevel hypertrophic and degenerative changes of the spine. Generalized demineralization. Hepatic steatosis. Postcholecystectomy changes. Nonspecific thickening of the adrenal glands. Small h iatal hernia. IMPRESSION: 1. Emphysematous changes with findings suggestive of pulmonary fibrosis. Favor UIP-type. Follow-up recommendations for incidental pulmonary nodules are per [employer] or [employer]. [facility], , 03/29/2025 3:49 PM
== END | disposition home or self-care (01) ==
LOC: RADCTMAIN 11:45
PROVIDERS: ATTEND Internal Medicine Geriatric Medicine
DX: J43.9 Emphysema, unspecified (principal)
CPT/HCPCS: 82565; 84520; 71260; 36415; Q9967